=== PATIENT | male | born 1960 | race American Indian/Alaskan Native ===

== ENCOUNTER 2017-01-01 07:57 | Inpatient (IN) | payer OTHER ==
--- NOTE | 2017-01-01 08:25 | CPEKG ---
Heart Rate: 76 RR Interval: 789 P-R Interval: 160 QRSD Interval: 92 QT Interval: 404 QTC Interval: 455 P Viborg: 9 QRS Viborg: -12 T Wave Viborg: 139 EKG Severity - ABNORMAL ECG - EKG Impression: SINUS RHYTHM EKG Impression: LVH WITH SECONDARY REPOLARIZATION ABNORMALITY EKG Impression: ANTERIOR ST ELEVATION, PROBABLY DUE TO LVH Electronically Signed By: Romina Mckoy 01-Jan-2017 08:32:08
--- NOTE | 2017-01-01 08:29 | EDPHY ---
H & P Stated Complaint: htn and gout flare l foot HPI/ROS: CHIEF COMPLAINT: Left foot swelling, high blood pressure HISTORY OF PRESENT ILLNESS: This patient is a 56 year old male complaining of left foot swelling onset a couple weeks ago. Initially he had pain in the area of his Achilles tendon. Now , he has no pain but his foot is still swollen. He has a sensation of pressure, and feels he cannot walk as well as he'd like to, due to pressure and his shoe not fitting. He has history of gout, diagnosed four months ago when he had right knee aspiration. He has been on indocin on and off. Foot pain is his main complain today. Last week he was seen [facility] for foot pain, found to be hypertensive, and advised to go to the emergency department but chose not to do so. He has chronic hypertension, followed by Dr. East, viscera washer. He generally takes Bisoprolol 10mg in the evenings. His last dose was 4am this morning. He does not check his blood pressure at home often, but thinks his baseline is around 180/120. Four years ago went to urgent care for shortness of breath while lying down, and was diagnosed with congestive heart failure. He had a cardiac catheterization and two stents placed. He has not followed up for a stress test as directed. He denies headache, confusion, change in vision, shortness of breath, chest pain, nausea, diarrhea, fever, abdominal pain, or other associated symptoms. REVIEW OF SYSTEMS: A ten point review of systems was performed and is negative with the exception of the items mentioned in the HPI. 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 Cooler Tender Dr. East. PCP Dr. Ribeiro at [facility]. No tobacco, no illicits. General Appearance: Alert. Vital signs reviewed. BP 222/119 Eyes: Pupils equal and round, no conjunctival injection, no discharge. Anicteric. ENT, Mouth: Mucous membranes are moist, no oropharyngeal erythema or edema. Neck: No lymphadenopathy, supple. Respiratory: Lungs are clear to auscultation; no wheezes, rales, or rhonchi. Cardiovascular: Regular rate and rhythm; no murmur, rub, or gallop. Gastrointestinal: Abdomen is soft and nontender, no masses or organomegaly, bowel sounds normal. Skin: Warm and dry, no rashes on exposed skin, normal color. Back: Nontender to palpation over the thoracolumbar spine. No CVAT. Extremities: Left foot mildly diffusely swollen. No warmth or erythema. No calf tenderness or swelling. No Achilles tenderness on left. Pulses: 2+ dorsalis pedis bilaterally. Neurological: Alert and oriented. Moving all four extremities easily and equally. CN 2-12 examined and intact. Strength 5/5 major motor groups. Sensation intact to light touch. Psychiatric: Normal affect. - Personal History Current Tetanus/Diphtheria Vaccine: Yes Tetanus Vaccine Date: 2004 - Medical/Surgical History PMH: 1. HTN 2. CAD s/p stenting 3. CHF 4. Gout Hx Asthma: No Hx Chronic Respiratory Disease: No Hx Diabetes: No Hx Cardiac Disease: Yes Hx Renal Disease: No Hx Cirrhosis: No Hx Alcoholism: No Hx HIV/AIDS: No Hx Splenectomy or Spleen Trauma: No - Social History Smoking Status: Former smoker Constitutional: Initial Vital Signs Temperature (C) 36.8 C 01/01/17 08:03 Heart Rate 83 01/01/17 08:03 Respiratory Rate 20 01/01/17 08:03 Blood Pressure 222/119 H 01/01/17 08:03 O2 Sat (%) 96 01/01/17 08:03 O2 Delivery Mode Room Air Allergies/Adverse Reactions: No Known Allergies Allergy (Verified 01/01/17 08:01) Home Medications: Medication Instructions Recorded Aspirin [Aspirin 81mg (*)] 81 mg PO DAILY 11/22/13 Bisoprolol Fumarate [Zebeta (*)] 2.5 mg PO DAILY 11/22/13 Potassium Cl [Klor-Con 20 meq (*)] 20 meq PO DAILY 11/22/13 Multivitamin with Minerals 1 each PO DAILY 01/01/17 [Multiple Vitamin] Medical Decision Making - Diagnostics EKG Interpretation: EKG interpreted by me in [facility]. Sinus rhythm with LVH, anterior ST elevation thought due to LVH, seen previously. Imaging Results: Xray left foot with joint changes involving the great toe and second toe suggestive of gouty arthritis. I have reviewed radiologist's report and xray. CXR with cardiomegaly, no infiltrate, no CHF. I have reviewed films and radiologist's report. ED Course/Re-evaluation: Creatinine elevated at 2.1. Patient's blood pressure remains high. He received lopressor 120 mg IV. Foot x-ray shows chronic changes of gouty arthritis, no acute processes. 11:[address] East. He recommends admission and NTG paste for control of BP at this time. BP now 189/105, down from triage BP of 223/120. 11:20 Spoke with hospitalist service. Dr. Chowdhury accepts admission for hypertensive urgency with acute kidney injury. 11:24 Reassessed patient. He is comfortable with admission. 12:14 Spoke with heel cutter senior manager asset protection. Nephrology will consult in hospital. Differential Diagnosis: I suspect that his foot pain is related to gout. He does not appear to be in pain at time of my evaluation, although this is his presenting complaint. He is not a good candidate for NSAIDs, given his hypertension and kidney function. Steroid could be considered. I considered a ddx of hypertension including but not limited to medication noncompliance, high sodium diet, renal vascular disease, endocrine abnormality, sympathomimetic agents, and pheochromocytoma. - Data Points Laboratory Results: Laboratory Results 01/01/17 08:55 01/01/17 08:55 Medications Given: Aspirin (Aspirin) 81 mg PO DAILY [facility] Stop: 07/01/17 08:59 Last Admin: 01/03/17 07:59 Dose: 81 mg Bisoprolol Fumarate (Zebeta) 5 mg PO DAILY [facility] Stop: 07/02/17 08:59 Last Admin: 01/03/17 07:59 Dose: 5 mg Heparin Sodium (Porcine) (Heparin Sc Injection) 5,000 unit SC Q8 [facility] Stop: 06/30/17 21:59 Last Admin: 01/02/17 01:45 Dose: Not Given Hydralazine HCl (Apresoline) 10 mg IVP Q6HRS PRN PRN Reason: hypertension Stop: 06/30/17 13:45 Last Admin: 01/03/17 04:04 Dose: 10 mg Hydralazine HCl (Apresoline) 25 mg PO TID [facility] Stop: 07/01/17 15:59 Last Admin: 01/03/17 07:59 Dose: 25 mg Multivitamins/Minerals (Thera M Plus Tablet) 1 each PO DAILY [facility] Stop: 07/01/17 08:59 Last Admin: 01/02/17 09:21 Dose: 1 each Oxycodone/Acetaminophen (Percocet 5/325) 1 - 2 tab PO Q4HRS PRN PRN Reason: Pain, Severe Able to Take PO Stop: 01/11/17 14:35 Last Admin: 01/02/17 08:15 Dose: 2 tab Prednisone (Prednisone) 40 mg PO DAILY [facility] Stop: 07/01/17 14:14 Last Admin: 01/03/17 07:58 Dose: 40 mg Discontinued Medications Bisoprolol Fumarate (Zebeta) 2.5 mg PO DAILY [facility] Stop: 07/01/17 08:59 Last Admin: 01/02/17 09:21 Dose: 2.5 mg Bisoprolol Fumarate (Zebeta) 2.5 mg PO ONCE ONE Stop: 01/02/17 10:50 Last Admin: 01/02/17 11:06 Dose: 2.5 mg Hydralazine HCl (Apresoline) 10 mg IVP ONCE ONE Stop: 01/01/17 14:16 Last Admin: 01/01/17 14:09 Dose: Not Given Labetalol HCl (Trandate Injection) 20 mg IVP Q4 PRN PRN Reason: HTN Stop: 06/30/17 13:55 Last Admin: 01/01/17 18:38 Dose: 20 mg Metoprolol Tartrate (Lopressor Injection) 10 mg IVP EDNOW ONE Stop: 01/01/17 08:54 Last Admin: 01/01/17 08:59 Dose: 10 mg Nitroglycerin (Nitro-Bid 2%) 1 inch TP EDNOW ONE Stop: 01/01/17 11:15 Last Admin: 01/01/17 12:18 Dose: 1 inch Departure - Departure Disposition: [facility] Inpatient Acute Clinical Impression: Hypertensive urgency Kidney failure Qualifiers: Renal failure chronicity: acute Acute renal failure type: unspecified Qualified Code(s): N17.9 - Acute kidney failure, unspecified Condition: Fair Report Scribed for: Romina Mckoy Report Scribed by: Merlyn Yun Date of Report: 01/01/17 Time of Report: 08:33 Physician Review and Approval Statement: 01/02/17 12:12 Portions of this note were transcribed by the medical device assembler. I, Dr. Romina Mckoy, personally performed the history, physical exam, and medical decision- making; and confirmed the accuracy of the information in the transcribed note.
[2017-01-01] MEDS ORDERED: METOPROLOL TARTRATE 5 MG/5 ML INJ IVP ONE (08:53)
[2017-01-01 09:07] LABS: % IMMATURE GRANULYOCYTES 0.3 % (0.0-1.1); ABSOLUTE IMMATURE GRANULOCYTES 0.04 10^3/uL (0.00-0.10); ADD DIFF? NO; ADD MORPH? NO; ADD SCAN? NO; ATYPICAL LYMPHOCYTE FLAG 0 (0-99); FRAGMENT RBC FLAG 0 (0-99); HEMOGLOBIN 15.4 g/dL (13.7-17.5); LEFT SHIFT FLG 0 (0-99); LIPEMIA HEMOLYSIS FLAG 80 (0-99); MEAN CELL HEMOGLOBIN 28.8 pg (27.9-34.1); MEAN CELL HEMOGLOBIN CONCENTR. 33.5 g/dL (32.4-36.7); MEAN CELL VOLUME 86.1 fL (81.5-99.8); MEAN PLATELET VOLUME 9.1 fL (8.7-11.7); PLATELET CLUMPS FLAG 10 (0-99); PLATELET COUNT 368 10^3/uL (150-400); RED BLOOD CELL COUNT 5.34 10^6/uL (4.40-6.38); RED CELL DISTRIBUTION WIDTH 12.4 % (11.5-15.2)
[2017-01-01 09:55] LABS: ANION GAP 20 mEq/L (8-16); CALCIUM 10.1 mg/dL (8.5-10.4); CARBON DIOXIDE 21 mEq/l (22-31); CHLORIDE 102 mEq/L (97-110); GLUCOSE 98 mg/dL (70-100); POTASSIUM 4.4 mEq/L (3.5-5.2); SODIUM 143 mEq/L (134-144)
[2017-01-01 10:04] LABS: COLOR YELLOW; LEUKOCYTE ESTERASE,URINE NEGATIVE (NEGATIVE); NITRITE,URINE NEGATIVE (NEGATIVE)
[2017-01-01 10:17] LABS: TROPONIN I 0.015 ng/mL (0-0.034)
[2017-01-01 10:20] LABS: CREATININE 2.1 mg/dL (0.7-1.3); GLOMERULAR FILTRATION RATE 33
[2017-01-01] MEDS ORDERED: NITROGLYCERIN 2% 1 GM PACKET TP ONE (11:14)
--- NOTE | 2017-01-01 13:44 | SOAPPROG ---
SOAP Progress Note Assessment/Plan: Assessment: hypertensive urgency AMY stopped hydralazine in past taking indocin for gout flare Plan: resume hydralazine, start with IV and convert to PO try to keep SBP 180-190 range for now beta manish avoid ramone/arb for now work up secondary causes of HTN no more indocin 01/01/17 13:40 Subjective: no complaints except left foot pain from gout Objective: Vital Signs Temp Pulse Resp BP Pulse Ox 37.1 C 81 17 243/133 H 97 01/01/17 12:42 01/01/17 13:19 01/01/17 12:42 01/01/17 13:19 01/01/17 12:42 Physical Exam - Physical Exam General Appearance: alert, no apparent distress, thin Respiratory: No rales, No rhonchi, No wheezing Cardiac/Chest: regular rate, rhythm, edema (left foot), No friction rub Abdomen: normal bowel sounds, non-tender, soft Neuro/Psych: alert, normal mood/affect, oriented x 3 ICD10 Worksheet Patient Problems: Problems Problem Status Onset Hypertension Acute Poor kidney function Acute Chronic Disease Management/Transitional Care Program Active
[2017-01-01] MEDS ORDERED: LABETALOL HCL 5 MG/ML 20 ML MDV IVP PRN (13:56)
[2017-01-01 13:57] LABS: URIC ACID 11.5 mg/dL (3.5-8.5)
[2017-01-01] MEDS: hydrALAZINE 20 MG/ML VIAL IVP PRN (14:05)
[2017-01-01 14:09] LABS: PTH INTACT NO MINERALS 116.5 pg/ml (10.8-79.4)
[2017-01-01] MEDS ORDERED: hydrALAZINE 20 MG/ML VIAL IVP ONE (14:15)
[2017-01-01] MEDS ORDERED: ONDANSETRON 4 MG/2 ML VIAL IVP PRN (14:36)
[2017-01-01] MEDS ORDERED: ALBUTEROL 3 ML DEYVIAL IH PRN (14:36)
[2017-01-01] MEDS ORDERED: ACETAMINOPHEN 325 MG TAB PO PRN (14:36)
[2017-01-01] MEDS ORDERED: ONDANSETRON DISINTEGRATING 4 MG TAB PO PRN (14:36)
--- NOTE | 2017-01-01 14:44 | PDGENHP ---
History and Physical - Chief Complaint HTN - History of Present Illness This is a 56 yo male with hx of CAD and HTN who recently was taken off Hydralazine who is being admitted for HTN Urgency with BP in the 200's systolic. He is not symptomatic. Denies CP, SOB, JESSICA, vision changes. Reports BP has been running high for a while. Nitropaste and BB given in the E.D. I was called by his nurse once the patient arrived to the floor with a BP of 243/133 and I ordered stat Hydralazine 10mg. He reports a long hx of HTN. 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 He is a non smoker, no cocaine or other illicits. Afebrile. No hx of renal or Thyroid illness. NO hx of DM. Cr is found to be elevated. He has been on indocin intermittently for Gout for over a year. Previously had unremarkable Cr. He denies any active gout and denies foot pain. PMHx: Gout HTN CAD s/p stent CHF PSHx: cardiac cath SHX: non smoker no illicits no ETOH FMHX: DMII ALL: NKDA MED: SEE MED REC EKG: LVH CXR: CADIOMEGALY History Information - Allergies/Home Medication List Allergies/Adverse Reactions: No Known Allergies Allergy (Verified 01/01/17 08:01) Home Medications: Aspirin [Aspirin 81mg (*)] 81 mg PO DAILY 11/22/13 [Last Taken 01/01/17] Bisoprolol Fumarate [Zebeta (*)] 2.5 mg PO DAILY 11/22/13 [Last Taken 01/01/17 04:00] Potassium Cl [Klor-Con 20 meq (*)] 20 meq PO DAILY 11/22/13 [Last Taken 12/31/16 ] Multivitamin with Minerals [Multiple Vitamin] 1 each PO DAILY 01/01/17 [Last Taken Unknown] I have personally reviewed and updated: family history, medical history, social history, surgical history - Social History Smoking Status: Former smoker Review of Systems ROS: 10pt was reviewed & negative except for what was stated in HPI & below Physical Exam Temp Pulse Resp BP Pulse Ox 37.1 C 81 17 243/133 H 97 01/01/17 12:42 01/01/17 13:19 01/01/17 12:42 01/01/17 14:05 01/01/17 12:42 Constitutional: no apparent distress, appears nourished, not in pain Eyes: PERRL, anicteric sclera, EOMI Ears, Nose, Mouth, Throat: moist mucous membranes, hearing normal Cardiovascular: regular rate and rhythym, no murmur, rub, or gallop, No JVD, No edema Peripheral Pulses: 2+: dorsalis-pedis (R), dorsalis-pedis (L) Respiratory: no respiratory distress, no rales or rhonchi, clear to auscultation Gastrointestinal: normoactive bowel sounds, soft, non-tender abdomen, no palpable masses Genitourinary: no bladder fullness, no bladder tenderness Skin: warm, normal color, no rashes or abrasions, no fluctuance, no induration, No mottled Musculoskeletal: full muscle strength, no muscle tenderness, normal joint ROM, no joint effusions Neurologic: AAOx3, sensation intact bilaterally Psychiatric: interacting appropriately, not anxious, not encephalopathic Lab Data & Imaging Review 01/01/17 08:55 01/01/17 08:55 WBC 13.17 10^3/uL (3.80-9.50) H 01/01/17 08:55 RBC 5.34 10^6/uL (4.40-6.38) 01/01/17 08:55 Hgb 15.4 g/dL (13.7-17.5) 01/01/17 08:55 Hct 46.0 % (40.0-51.0) 01/01/17 08:55 MCV 86.1 fL (81.5-99.8) 01/01/17 08:55 MCH 28.8 pg (27.9-34.1) 01/01/17 08:55 MCHC 33.5 g/dL (32.4-36.7) 01/01/17 08:55 RDW 12.4 % (11.5-15.2) 01/01/17 08:55 Plt Count 368 10^3/uL (150-400) 01/01/17 08:55 MPV 9.1 fL (8.7-11.7) 01/01/17 08:55 Neut % (Auto) 83.1 % (39.3-74.2) H 01/01/17 08:55 Lymph % (Auto) 8.5 % (15.0-45.0) L 01/01/17 08:55 [place] % (Auto) 7.0 % (4.5-13.0) 01/01/17 08:55 Eos % (Auto) 0.8 % (0.6-7.6) 01/01/17 08:55 Baso % (Auto) 0.3 % (0.3-1.7) 01/01/17 08:55 Nucleat RBC Rel Count 0.0 % (0.0-0.2) 01/01/17 08:55 Absolute Neuts (auto) 10.94 10^3/uL (1.70-6.50) H 01/01/17 08:55 Absolute Lymphs (auto) 1.12 10^3/uL (1.00-3.00) 01/01/17 08:55 Absolute Monos (auto) 0.92 10^3/uL (0.30-0.80) H 01/01/17 08:55 Absolute Eos (auto) 0.11 10^3/uL (0.03-0.40) 01/01/17 08:55 Absolute Basos (auto) 0.04 10^3/uL (0.02-0.10) 01/01/17 08:55 Absolute Nucleated RBC 0.00 10^3/uL (0-0.01) 01/01/17 08:55 Immature Gran % 0.3 % (0.0-1.1) 01/01/17 08:55 Immature Gran # 0.04 10^3/uL (0.00-0.10) 01/01/17 08:55 Turbidity TNP 01/01/17 08:55 Sodium 143 mEq/L (134-144) 01/01/17 08:55 Potassium 4.4 mEq/L (3.5-5.2) 01/01/17 08:55 Chloride 102 mEq/L (97-110) 01/01/17 08:55 Carbon Dioxide 21 mEq/l (22-31) L 01/01/17 08:55 Anion Gap 20 mEq/L (8-16) H 01/01/17 08:55 BUN 32 mg/dL (7-23) H 01/01/17 08:55 Creatinine 2.1 mg/dL (0.7-1.3) H 01/01/17 08:55 Estimated GFR 33 01/01/17 08:55 Glucose 98 mg/dL (70-100) 01/01/17 08:55 Uric Acid 11.5 mg/dL (3.5-8.5) H 01/01/17 13:31 Calcium 10.1 mg/dL (8.5-10.4) 01/01/17 08:55 Troponin I 0.015 ng/mL (0-0.034) 01/01/17 08:55 25-OH Vitamin D Total 15.0 ng/mL (30-100) L 01/01/17 13:31 TSH 0.845 uIU/mL (0.465-4.680) 01/01/17 13:31 PTH Intact 116.5 pg/ml (10.8-79.4) H 01/01/17 13:31 Specimen Hemolysis TNP 01/01/17 08:55 Urine Color YELLOW 01/01/17 09:55 Urine Appearance CLEAR 01/01/17 09:55 Urine pH 5.0 (5.0-7.5) 01/01/17 09:55 Ur Specific [place] 1.019 (1.002-1.030) 01/01/17 09:55 Urine Protein NEGATIVE (NEGATIVE) 01/01/17 09:55 Urine Ketones NEGATIVE (NEGATIVE) 01/01/17 09:55 Urine Blood NEGATIVE (NEGATIVE) 01/01/17 09:55 Urine Nitrate NEGATIVE (NEGATIVE) 01/01/17 09:55 Urine Bilirubin NEGATIVE (NEGATIVE) 01/01/17 09:55 Urine Urobilinogen NEGATIVE EU (0.2-1.0) 01/01/17 09:55 Ur Leukocyte Esterase NEGATIVE (NEGATIVE) 01/01/17 09:55 Urine Glucose NEGATIVE (NEGATIVE) 01/01/17 09:55 Rheum Factor Semi-Quant < 8.6 IU/mL (<12.0) 01/01/17 13:31 Assessment & Plan Assessment: #HTN Urgency #Acute vs subacute kidney injury #Leukocytosis, unclear etiology, no signs of infection #Gout, chronic, no acute exacerbation, primarily affects feet #CAD Plan: Admit Renal is following. Urine studies pending. TTE pending. Renal US is pending CV to follow IV Meds: Hydralazine and Propranolol PRN. Goal BP today is systolic 180-190mmHg Cont home BB Stop Indocin Does not appear to have volume deficit Urine studies ordered, TSH restart appropriate home meds DVT proph: Heparin Full Code
[2017-01-01 14:53] LABS: HEPATITIS B SURFACE ANTIBODY NEGATIVE (NEGATIVE)
--- NOTE | 2017-01-01 15:16 | GCON ---
[f rep st] CONSULTATION NEPHROLOGY CONSULTATION DATE OF CONSULTATION: 01/01/2017 REASON FOR CONSULTATION: Opinion regarding hypertensive urgency. HISTORY OF PRESENT ILLNESS: The patient is a very pleasant, 56-year-old gentleman with a history of hypertension and coronary artery disease, currently status post coronary artery stenting x2 in October of 2012. He has a history of hypertension, as well as gout. He was in his usual state of health u ntil about 3 days ago, when he began having a gout flare. He took indomethacin up until last night for his gout, but was not getting better. He presented to the emergency department today with left foot pain. He was noted to have a blood pressure of 245/136 in the emergency department. He was gi jose angel nitroglycerin paste and his blood pressures have decreased, initially down to the 205/116 range, but now remained in the 240/130 range. He denies having had fevers, chills, nausea, vomiting, chest pain, shortness of breath, cough, sputu m, hemoptysis, hematemesis, epistaxis, abdominal pain, diarrhea or constipation, melena, hematochezi a, blurry vision, double vision, headache, orthopnea, paroxysmal nocturnal dyspnea, palpitations, sy ncope, diminished urine output, gross hematuria or dysuria. He has been taking indomethacin. PAST MEDICAL HISTORY: Significant for: 1. Coronary artery disease. 2. Status post coronary artery stenting x2 in October of 2012. 3. Hypertension. 4. Gout. MEDICATIONS: Current home medications include: 1. Aspirin 81 mg a day. 2. Bisoprolol 5 mg daily. 3. Multiple vitamin daily. 4. Furosemide 20 mg daily. 5. Potassium chloride 20 mEq daily. 6. Plavix and hydralazine (stopped taking about 18 months ago). 7. Indomethacin as needed for gout, last dose was last night. ALLERGIES: None. FAMILY HISTORY: Positive for hypertension in his mother. Negative for renal disease. SOCIAL HISTORY: He is . He has no children. 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 He does not use tobacco, alcohol, IV or recreational drugs. He enjoys snowboarding, mountain biking, swimming, and generally all outdoor activities. REVIEW OF SYSTEMS: A complete 12-point review of systems was performed with pertinent positives and negatives as per the previous sections. PHYSICAL EXAMINATION: VITAL SIGNS: Blood pressures are in the 230s to 140s over 120s to 130s, puls e 73, respirations 14, temperature 36.8 degrees, he weighs 80 kg. GENERAL: He is awake, alert, coordinator of placement perative, and is in no acute distress. HEENT: Pupils are reactive to light. Extraocular movements are intact. Mucous membranes are moist. NECK: No lymphadenopathy or thyromegaly. HEART: Regula r. No rub. No S3. A grade 1/6 murmur. LUNGS: No rales, rhonchi, or wheezes. ABDOMEN: Bowel so unds are positive. Soft, nontender, nondistended. I can appreciate no bruits. EXTREMITIES: Trace edema on the left. He has gouty tophi on the 2nd left toe. No edema on the right. NEUROLOGIC: N o asterixis. SKIN: He has changes of arterial and venous insufficiency in his lower extremities bi laterally. MUSCULOSKELETAL: Changes of gouty tophi on his 2nd left toe. LABS: Laboratory from the Emergency Department: Serum sodium 143, potassium 4.4, chloride 102, CO2 21, BUN 32, creatinine 2.1, glucose 98. Calcium of 10. Troponin of 0.015. WBC 13.17, hemoglobin 15.4, hematocrit 46, platelet count 368,000. Urinalysis: Specific gravity 1.019, pH 5, negative pr otein, negative blood. IMAGING: Chest x-ray showed cardiomegaly without infiltrates. Foot x-ray showed probable gouty arthritis. IMPRESSION: 1. Hypertensive urgency, currently asymptomatic. He moved upstairs to the telemetry floor. 2. Acute versus chronic kidney injury. May well be due to nonsteroidal antiinflammatory drug use r ecently. 3. The patient has known coronary artery disease, but stopped his Plavix and hydralazine about 18 m onths ago. PLAN: 1. Will resume hydralazine. Will give it IV to help bring his systolic blood pressures down more i nto the 180-190 range over the next day or so. 2. Labetalol IV also to keep the systolic blood pressure in the 180-190 range for right now. 3. With his renal failure, we will avoid SAKINA or ARB for right now. 4. We will evaluate for secondary causes of his hypertension. 5. We will check an echocardiogram, renal ultrasound with Doppler, cortisol, aldosterone, renin, AN A, rheumatoid factor, TSH, urine chemistries, hepatitis serologies, etc. 6. Would avoid nonsteroidals both now and in the future. 7. All questions were answered to the patient's satisfaction. Thank for allowing me to participate in the care of your patient. If there are any questions, pleas e do not hesitate to contact us. We will be following along with you. /[id number]/MODL
--- NOTE | 2017-01-01 15:30 | ECHO ---
[id number] + + [address] : : [place] [id number] : : [phone] + Adult Echocardiographic Report + ---+ :Name: CHET SURY DStudy Date: 01/01/2017 02:18 PM BP: 243/133 mmHg : : Hospital Admission Number: [id number] Location: 209: :: 1960 Gender: Male Height: 67 in : :Age: 56 yrs Race: AIA Weight: 177 lb : :Reason For Study: lvh hypertensive emergency : : BSA: 1.9 meters2 : :History: hypertensive urgency : + ---+ MMode/2D Measurements \T\ Calculations IVSd: 1.3 cm RVDd: 2.6 cm FS: 20.2 % Ao root diam: LVPWd: 1.2 cm LVIDd: 5.4 cm EDV(Teich): 2.9 cm LVIDs: 4.3 cm 143.7 ml ESV(Teich): 84.9 ml EF(Teich): 40.9 % LVLd ap4: 10.1 cm SV(MOD-sp4): EDV(MOD-sp4): 132.0 ml 264.0 ml LVLs ap4: 9.1 cm ESV(MOD-sp4): 132.0 ml EF(MOD-sp4): 50.0 % Normal Measurement Values: + + :LVIDd (3.5-5.7cm) IVSd (0.6-1.1cm) LVPWd (0.6-1.1cm) Aortic Root (2.0-3.7cm)Left Atrium (1.5-4.0cm): :LV Vol(d) (76-115ml) LV Vol(s) (29-48ml) Ejec Fraction (50-65%)PV Ciro (0.6- 1.2m/s) TV Crio (0.4-1.0m/s) : :MV E Ciro (0.8-1.0m/s)MV A Ciro (0.3-1.0m/s)LVOT Ciro (0.7-1.2m/s) Asc Ao Ciro ( 0.9-1.8m/s) : + + Doppler Measurements \T\ Calculations MV E max ciro: Ao V2 max: LV V1 max: PA V2 max: 40.6 cm/sec 118.2 cm/sec 98.7 cm/sec 147.0 cm/sec MV A max ciro: Ao max PG: LV V1 max PG: PA max P.0 cm/sec 6.1 mmHg 3.9 mmHg 8.6 mmHg MV E/A: 0.36 TR max ciro: 203.0 cm/sec TR max P.5 mmHg RAP systole: 5.0 mmHg RVSP(TR): 21.5 mmHg Left Ventricle The left ventricle is borderline dilated. There is moderate concentric left ventricular hypertrophy. Left ventricular systolic function is low normal. Ejection Fraction = 50-55%. There is Doppler evidence for diastolic dysfunction. Right Ventricle The right ventricle is normal in size and function. Atria The left atrial size is normal. Right atrial size is normal. Mitral Valve The mitral valve leaflets appear thickened, but open well. There is no mitral valve stenosis. There is mild mitral regurgitation. Tricuspid Valve The tricuspid valve is normal in structure and function. There is no tricuspid stenosis. There is mild tricuspid regurgitation. Right ventricular systolic pressure is 22mmHg. Aortic Valve Cannot rule out bicuspid aortic valve due to image quality. There is no aortic stenosis. Mild aortic regurgitation. Pulmonic Valve The pulmonic valve is not well visualized. Great Vessels The aortic root is normal size. Pericardium/Pleural There is no pericardial effusion. Conclusion A two-dimensional transthoracic echocardiogram with M-mode and Doppler was performed. There is moderate concentric left ventricular hypertrophy. Left ventricular systolic function is low normal. There is Doppler evidence for diastolic dysfunction. There is mild mitral regurgitation. There is mild tricuspid regurgitation. Right ventricular systolic pressure is 22mmHg. Cannot rule out bicuspid aortic valve due to image quality. Mild aortic regurgitation. Ejection Fraction = 50-55%. The left ventricle is borderline dilated. Final Reading Physician: Anirudh Mc signed on 01/01/2017 03:29 PM Ordering Physician: Chapito Martinez Performed By: Florence Contreras
[2017-01-01] MEDS: HEPARIN 5,000 UNIT/0.5 ML SYR SC SCH (21:57)
[2017-01-01] MEDS: OXYCODONE/APAP 5/325 TAB PO PRN (22:47)
[2017-01-02] MEDS: HEPARIN 5,000 UNIT/0.5 ML SYR SC SCH (01:45)
[2017-01-02 05:08] LABS: % IMMATURE GRANULYOCYTES 0.5 % (0.0-1.1); ABSOLUTE IMMATURE GRANULOCYTES 0.05 10^3/uL (0.00-0.10); ADD DIFF? NO; ADD MORPH? NO; ADD SCAN? NO; ATYPICAL LYMPHOCYTE FLAG 0 (0-99); FRAGMENT RBC FLAG 0 (0-99); HEMATOCRIT 39.1 % (40.0-51.0); HEMOGLOBIN 12.8 g/dL (13.7-17.5); LEFT SHIFT FLG 0 (0-99); LIPEMIA HEMOLYSIS FLAG 80 (0-99); MEAN CELL HEMOGLOBIN 28.5 pg (27.9-34.1); MEAN CELL HEMOGLOBIN CONCENTR. 32.7 g/dL (32.4-36.7); MEAN CELL VOLUME 87.1 fL (81.5-99.8); MEAN PLATELET VOLUME 9.1 fL (8.7-11.7); PLATELET CLUMPS FLAG 0 (0-99); PLATELET COUNT 330 10^3/uL (150-400); RED BLOOD CELL COUNT 4.49 10^6/uL (4.40-6.38); RED CELL DISTRIBUTION WIDTH 12.4 % (11.5-15.2)
[2017-01-02 05:25] LABS: ALBUMIN 3.6 g/dL (3.5-5.0); ANION GAP 13 mEq/L (8-16); CARBON DIOXIDE 22 mEq/l (22-31); CHLORIDE 104 mEq/L (97-110); CREATININE 1.9 mg/dL (0.7-1.3); GLOMERULAR FILTRATION RATE 37; GLUCOSE 97 mg/dL (70-100); MAGNESIUM 2.2 mg/dL (1.6-2.3); POTASSIUM 4.1 mEq/L (3.5-5.2); SODIUM 139 mEq/L (134-144)
[2017-01-02] MEDS: OXYCODONE/APAP 5/325 TAB PO PRN (08:15)
[2017-01-02] MEDS ORDERED: BISOPROLOL FUMARATE 5 MG TAB PO SCH (09:00)
[2017-01-02] MEDS ORDERED: NON-FORMULARY NEW DRUG (Multivitamin With Minerals [Multiple Vitamin] 1 EACH) PO SCH (09:00)
[2017-01-02] MEDS: MULTIVITAMINS W-MINERALS 1 EACH TAB PO SCH (09:21)
[2017-01-02] MEDS: ASPIRIN 81 MG CHEWABLE TAB PO SCH (09:21)
[2017-01-02] MEDS: hydrALAZINE 20 MG/ML VIAL IVP PRN (09:24)
[2017-01-02 09:44] LABS: EOSMR EOSINOPHILS NO EOS SEEN (NO EOS SEEN)
[2017-01-02 09:45] LABS: EOSMR EPITHELIAL CELLS FEW EPITH CELLS; EOSMR PMNS NO PMN CELLS SEEN; EOSMR RBCS NO RBCS SEEN
[2017-01-02] MEDS ORDERED: BISOPROLOL FUMARATE 5 MG TAB PO ONE (10:49)
--- NOTE | 2017-01-02 11:23 | SOAPPROG ---
SOAP Progress Note Assessment/Plan: Assessment: hypertensive urgency, bp better today AMY, creat down a bit gout flare LVH on echo Probable L main TYLER on doppler Plan: resume hydralazine, convert to PO, 25 mg TID try to keep SBP 180-190 range for now increase beta manish (bisoprolol) avoid ramone/arb for now no more indocin would consider CO2 angiography or renal arteries +/- intervention depending on findings await other secondary eval labs 01/01/17 13:40 01/02/17 11:19 Subjective: at bedside counseled regarding prob TYLER and need for potential angio and intervention counseled regarding risks and benefits, all questions answered feeling better today except for gout, would start pred 20 mg daily for a week and then start allopurinol for prevention no cp sob nausea vomiting or anorexia Objective: Vital Signs Temp Pulse Resp BP Pulse Ox 37.2 C 91 18 184/118 H 96 01/02/17 08:00 01/02/17 08:00 01/02/17 08:00 01/02/17 09:24 01/02/17 08:00 Laboratory Results 01/02/17 04:01 01/02/17 04:01 01/01/17 01/02/17 01/03/17 05:59 05:59 05:59 Intake Total 350 Output Total 400 Balance -50 Physical Exam - Physical Exam General Appearance: alert Respiratory: No rales, No rhonchi, No wheezing Cardiac/Chest: regular rate, rhythm, No edema, No friction rub Abdomen: normal bowel sounds, non-tender, soft Extremities: No pedal edema Neuro/Psych: alert, normal mood/affect, oriented x 3 ICD10 Worksheet Patient Problems: Problems Problem Status Onset Hypertension Acute Poor kidney function Acute Chronic Disease Management/Transitional Care Program Active
[2017-01-02 11:51] LABS: ANTINUCLEAR ANTIBODIES SCREEN 0.37 UNITS (<=1.00)
--- NOTE | 2017-01-02 14:06 | HOSPPROG ---
Hospitalist Progress Note Assessment/Plan: # Acute hypertensive urgency- patient presented with blood pressures in the 230s to 240 was treated with IV pushes of metoprolol in the emergency department as well as hydralazine and labetalol on the medical floor- BP ranging in the 180 systolic this morning Telemetry (personally reviewed and interpreted) sinus rhythm without acute changes- oxygen saturations 95% on room air Renal ultrasound ( reviewed) findings consistent with possible renal artery stenosis on the right - increasing outpatient this overall to 5 mg daily - adding hydralazine 25 mg p.o. three times daily - holding Fredo inhibitors and ARB at this time secondary to acute kidney injury - reviewed case with IR and Nephrology planning for a CO 2 renal arteriogram tomorrow and possible intervention - NPO after midnight # acute kidney injury- creatinine 2.1-> 1.9 this a.m. - renal ultrasound reviewed above - continue holding NSAIDs - planning for renal evaluation tomorrow by IR # suspected acute gout flare- patient with marked pain overnight of the right great toe and 2nd toe Has crystal confirmed diagnosis of gout in the past- was using NSAIDs at home - continue holding NSAIDs - start p.o. prednisone - continue p.r.n. pain meds # coronary artery disease- history of- no current chest pain complaints - continue home medications - continue aggressive blood pressure control # proph - patient refusing heparin- will hold for INR in a.m. # diet cardiac- NPO after midnight # disposition greater than 2 midnights as requiring cardiac monitoring active titration of blood pressure medications and evaluation for possible diagnosis of renal artery stenosis I have discussed the case with Nephrology we will plan for a CO2 renal arteriogram with potential intervention by IR in a.m. Subjective: Denies chest pain Objective: Vital Signs Temp Pulse Resp BP Pulse Ox 36.9 C 85 17 180/105 H 95 01/02/17 12:00 01/02/17 12:00 01/02/17 12:00 01/02/17 12:00 01/02/17 12:00 Laboratory Results 01/02/17 04:01 01/02/17 04:01 01/01/17 01/02/17 01/03/17 05:59 05:59 05:59 Intake Total 350 Output Total 400 Balance -50 - Physical Exam Constitutional: appears nourished Eyes: anicteric sclera Ears, Nose, Mouth, Throat: moist mucous membranes Cardiovascular: regular rate and rhythym Respiratory: no respiratory distress, no rales or rhonchi Gastrointestinal: normoactive bowel sounds Genitourinary: no bladder fullness Skin: warm, normal color Musculoskeletal: No asymmetric calves Neurologic: AAOx3 Psychiatric: interacting appropriately, not anxious Lymph, Heme, Immunologic: no cervical LAD ICD10 Worksheet Patient Problems: Problems Problem Status Onset Hypertension Acute Poor kidney function Acute Chronic Disease Management/Transitional Care Program Active
[2017-01-02] MEDS: predniSONE 20 MG TAB PO SCH (14:26)
[2017-01-02] MEDS: hydrALAZINE 25 MG TAB PO SCH ×2 (14:27→22:03)
[2017-01-02 15:26] LABS: DSDNA IF INDICATED NOT INDICATED (NOT IND)
[2017-01-03] MEDS: hydrALAZINE 20 MG/ML VIAL IVP PRN (04:04)
[2017-01-03 05:33] LABS: % IMMATURE GRANULYOCYTES 0.5 % (0.0-1.1); ABSOLUTE IMMATURE GRANULOCYTES 0.07 10^3/uL (0.00-0.10); ADD DIFF? NO; ADD MORPH? NO; ADD SCAN? NO; ATYPICAL LYMPHOCYTE FLAG 0 (0-99); FRAGMENT RBC FLAG 0 (0-99); HEMATOCRIT 42.3 % (40.0-51.0); HEMOGLOBIN 14.1 g/dL (13.7-17.5); LEFT SHIFT FLG 0 (0-99); LIPEMIA HEMOLYSIS FLAG 80 (0-99); MEAN CELL HEMOGLOBIN 28.7 pg (27.9-34.1); MEAN CELL HEMOGLOBIN CONCENTR. 33.3 g/dL (32.4-36.7); MEAN PLATELET VOLUME 9.3 fL (8.7-11.7); PLATELET CLUMPS FLAG 0 (0-99); PLATELET COUNT 404 10^3/uL (150-400); RED BLOOD CELL COUNT 4.92 10^6/uL (4.40-6.38); RED CELL DISTRIBUTION WIDTH 12.1 % (11.5-15.2)
[2017-01-03 05:43] LABS: ALBUMIN 4.1 g/dL (3.5-5.0); ANION GAP 16 mEq/L (8-16); CALCIUM 9.9 mg/dL (8.5-10.4); CARBON DIOXIDE 20 mEq/l (22-31); CHLORIDE 102 mEq/L (97-110); CREATININE 1.7 mg/dL (0.7-1.3); GLOMERULAR FILTRATION RATE 42; GLUCOSE 156 mg/dL (70-100); POTASSIUM 4.8 mEq/L (3.5-5.2); SODIUM 138 mEq/L (134-144)
[2017-01-03 05:46] LABS: INR 0.98 (0.83-1.16); PROTIME(PATIENT) 12.9 SEC (12.0-15.0)
[2017-01-03 05:47] LABS: APTT 33.7 SEC (23.0-38.0)
[2017-01-03] MEDS: predniSONE 20 MG TAB PO SCH (07:58)
[2017-01-03] MEDS: hydrALAZINE 25 MG TAB PO SCH ×3 (07:59→21:17)
[2017-01-03] MEDS: BISOPROLOL FUMARATE 5 MG TAB PO SCH (07:59)
[2017-01-03] MEDS: ASPIRIN 81 MG CHEWABLE TAB PO SCH (07:59)
[2017-01-03] MEDS: MULTIVITAMINS W-MINERALS 1 EACH TAB PO SCH (10:03)
--- NOTE | 2017-01-03 10:30 | SOAPPROG ---
SOJEFF Progress Note Assessment/Plan: Assessment:Plan: HTN-Unstable -BP worse -possibly due to TYLER -plan for angiogram and MIRROR INSTALLER today -BP elevated -plan not to over-treat prior to procedure as BP can drop precipitously with intervention -discussed with nursing -short acting medication if needed afterward -BP's can be somewhat labile with reperfusion -risk for complications discussed with patient and spouse -if no TYLER is identified, will need to increase Bisoprolol and hydralazine and add ARB ARF-resolved -element from NSAIDs and/or HTN Gout-had been using indocin at home -given baseline CKD, this would be contraindicated -on prednisone CKD-baseline creatinine 1.6 to 1.9 -now at baseline -lytes and volume status okay Dispo-pending results and/or response to the above 01/03/17 10:34 01/03/17 10:36 Subjective: no new complaints, BP elevated Objective: Vital Signs Temp Pulse Resp BP Pulse Ox 37.1 C 107 H 14 200/127 H 96 01/03/17 08:00 01/03/17 08:00 01/03/17 08:00 01/03/17 08:00 01/03/17 08:00 Laboratory Results 01/03/17 04:02 01/03/17 04:02 01/02/17 01/03/17 01/04/17 05:59 05:59 05:59 Intake Total 350 500 Output Total 400 600 400 Balance -50 -100 -400 PT 12.9 SEC (12.0-15.0) 01/03/17 04:02 INR 0.98 (0.83-1.16) 01/03/17 04:02 Physical Exam - Physical Exam General Appearance: WD/WN, alert, no apparent distress EENT: normal ENT inspection Neck: normal inspection Respiratory: chest non-tender, lungs clear, normal breath sounds, No respiratory distress Cardiac/Chest: regular rate, rhythm, No diastolic murmur, No systolic murmur Abdomen: normal bowel sounds, non-tender, soft, No hepatomegaly, No splenomegaly Skin: normal color, warm/dry Extremities: No swelling Neuro/Psych: no motor/sensory deficits ICD10 Worksheet Patient Problems: Problems Problem Status Onset Hypertensive urgency Acute Kidney failure Acute Chronic Disease Management/Transitional Care Program Active
[2017-01-03] MEDS ORDERED: fentaNYL 100 MCG/2 ML INJ ONE (12:50)
[2017-01-03] MEDS ORDERED: MIDAZOLAM 2 MG/2 ML VIAL ONE (12:51)
[2017-01-03] MEDS ORDERED: GLUCAGON,HUMAN RECOMBINANT 1 MG VIAL ONE (13:23)
[2017-01-03] MEDS ORDERED: IOPAMIDOL (ISOVUE-300) 100 ML BTL ONE ×2 (13:56→14:11)
--- NOTE | 2017-01-03 14:37 | POSTOPPROG ---
Post Op Note Date of Operation: 01/03/17 Surgeon: Lamont Hutchinson Anesthesia: IV Sedation Pre-op Diagnosis: Hypertensive crisis Post-op Diagnosis: Renal arterial stenosis Indication: Uncontrolled labile hypertension Procedure: Bilateral renal CO2 arteriography. Left renal arterial stent Findings: Left renal arterial stenosis, 6mm stent. Chronic bilateral renal disease. Inf/Abcess present in the surg proc area at time of surgery?: No Depth: Superfical (Skin SQ) EBL: Minimal Complications: 0
--- NOTE | 2017-01-03 15:58 | HOSPPROG ---
Hospitalist Progress Note Assessment/Plan: # Acute hypertensive urgency- patient presented with blood pressures in the 230s to 240 was treated with IV pushes of metoprolol in the emergency department as well as hydralazine and labetalol on the medical floor- BP ranging in the 180-200 systolic this morning Telemetry (personally reviewed and interpreted) sinus rhythm without acute changes- oxygen saturations 95% on room air Renal ultrasound - findings consistent with possible renal artery stenosis on the right - continue bisoprolol 5 mg daily - will discuss up titrating hydralazine 25 mg p.o. three times daily - holding Fredo inhibitors and ARB at this time secondary to acute kidney injury - patient to IR today for CO 2 renal arteriogram and possible intervention - NPO after midnight # Acute kidney injury- creatinine 2.1-> 1.7 this a.m. - renal ultrasound reviewed above - continue holding NSAIDs - planning for renal evaluation tomorrow by IR # acute gout flare- patient with marked pain of the right great toe and 2nd toe - improved overnight with prednisone Has crystal confirmed diagnosis of gout in the past- was using NSAIDs at home - continue holding NSAIDs - continue p.o. prednisone - continue p.r.n. pain meds # coronary artery disease- history of- no current chest pain complaints - continue home medications - continue aggressive blood pressure control # proph - heparin- will hold for INR in a.m. # diet cardiac- NPO after midnight # disposition greater than 2 midnights as requiring cardiac monitoring active titration of blood pressure medications and evaluation for possible diagnosis of renal artery stenosis I have discussed the case with IR- Renal CO2 arteriogram today Subjective: Denies chest pain - gout much improved Objective: Vital Signs Temp Pulse Resp BP Pulse Ox 36.7 C 84 16 204/119 H 91 L 01/03/17 10:59 01/03/17 10:59 01/03/17 10:59 01/03/17 10:59 01/03/17 10:59 Laboratory Results 01/03/17 04:02 01/03/17 04:02 01/02/17 01/03/17 01/04/17 05:59 05:59 05:59 Intake Total 350 500 Output Total 400 600 400 Balance -50 -100 -400 PT 12.9 SEC (12.0-15.0) 01/03/17 04:02 INR 0.98 (0.83-1.16) 01/03/17 04:02 - Physical Exam Constitutional: appears nourished Eyes: anicteric sclera Ears, Nose, Mouth, Throat: moist mucous membranes Cardiovascular: regular rate and rhythym Respiratory: no respiratory distress, no rales or rhonchi Gastrointestinal: normoactive bowel sounds, soft, non-tender abdomen Genitourinary: no bladder fullness Skin: warm, normal color Musculoskeletal: No asymmetric calves Neurologic: AAOx3 Psychiatric: interacting appropriately, not anxious Lymph, Heme, Immunologic: no cervical LAD ICD10 Worksheet Patient Problems: Problems Problem Status Onset Hypertensive urgency Acute Kidney failure Acute Chronic Disease Management/Transitional Care Program Active
[2017-01-04 04:49] LABS: % IMMATURE GRANULYOCYTES 0.5 % (0.0-1.1); ADD DIFF? NO; ADD MORPH? NO; ADD SCAN? NO; ATYPICAL LYMPHOCYTE FLAG 0 (0-99); FRAGMENT RBC FLAG 0 (0-99); HEMATOCRIT 39.7 % (40.0-51.0); HEMOGLOBIN 13.1 g/dL (13.7-17.5); LEFT SHIFT FLG 0 (0-99); LIPEMIA HEMOLYSIS FLAG 80 (0-99); MEAN CELL HEMOGLOBIN 28.9 pg (27.9-34.1); MEAN CELL VOLUME 87.6 fL (81.5-99.8); MEAN PLATELET VOLUME 9.1 fL (8.7-11.7); PLATELET CLUMPS FLAG 10 (0-99); PLATELET COUNT 352 10^3/uL (150-400); RED BLOOD CELL COUNT 4.53 10^6/uL (4.40-6.38); RED CELL DISTRIBUTION WIDTH 12.7 % (11.5-15.2)
[2017-01-04 05:01] LABS: ALBUMIN 3.5 g/dL (3.5-5.0); ANION GAP 14 mEq/L (8-16); CALCIUM 9.3 mg/dL (8.5-10.4); CARBON DIOXIDE 20 mEq/l (22-31); CHLORIDE 104 mEq/L (97-110); CREATININE 2.4 mg/dL (0.7-1.3); GLOMERULAR FILTRATION RATE 28; GLUCOSE 92 mg/dL (70-100); POTASSIUM 4.3 mEq/L (3.5-5.2); SODIUM 138 mEq/L (134-144)
[2017-01-04 09:52] LABS: CORTISOL/CREATININE RATIO 25 mcg/g Cr (1.0-119); CREATININE CONCENTRATION 187 mg/dL
[2017-01-04] MEDS: BISOPROLOL FUMARATE 5 MG TAB PO SCH (10:59)
[2017-01-04] MEDS: hydrALAZINE 25 MG TAB PO SCH ×3 (11:00→21:20)
[2017-01-04] MEDS: MULTIVITAMINS W-MINERALS 1 EACH TAB PO SCH (11:00)
[2017-01-04] MEDS: predniSONE 20 MG TAB PO SCH (11:00)
[2017-01-04] MEDS: ASPIRIN 81 MG CHEWABLE TAB PO SCH (11:01)
--- NOTE | 2017-01-04 13:39 | SOAPPROG ---
SOAP Progress Note Assessment/Plan: Assessment: HTN-Unstable -possibly due to TYLER -s/p angio and stent L renal artery 01/03 -BP improved and currently 150s-160s which is ok post procedure (keep at this range for now)- can gradually titrate meds as needed over next several days -no ramone/arb currently AMY on CKD3- non-oliguric -baseline Cr 1.6-1.9 -element from NSAIDs, lowering of HTN, contrast. Hb stable post procedure. Acute bump overnight likely hemodynamic. -Cr up to 2.4 today- lwould not lower BP further at this point, monitor. Further eval if Cr continues to rise in am Gout-had been using indocin at home -given baseline CKD, this would be contraindicated -on prednisone Secondary Hyperparathyroidism -control phos and will need Vit D3 replacement once AMY/phos stable Ewa Fink MD [facility] [phone] pager 01/04/17 15:25 Subjective: Sleeping when I came by. Cr bumped, good UOP. BP running 150s-160s. Objective: Vital Signs Temp Pulse Resp BP Pulse Ox 36.7 C 89 16 153/86 H 90 L 01/04/17 11:35 01/04/17 11:35 01/04/17 11:35 01/04/17 11:35 01/04/17 11:35 Laboratory Results 01/04/17 03:51 01/04/17 03:51 01/03/17 01/04/17 01/05/17 05:59 05:59 05:59 Intake Total 500 720 Output Total 600 1200 Balance -100 -480 PT 12.9 SEC (12.0-15.0) 01/03/17 04:02 INR 0.98 (0.83-1.16) 01/03/17 04:02 Physical Exam - Physical Exam General Appearance: no apparent distress, other (sleeping but arousable) Respiratory: lungs clear Cardiac/Chest: regular rate, rhythm, other (no rub) Abdomen: normal bowel sounds, non-tender, soft Extremities: other (no edema) ICD10 Worksheet Patient Problems: Problems Problem Status Onset Hypertensive urgency Acute Kidney failure Acute Chronic Disease Management/Transitional Care Program Active
--- NOTE | 2017-01-04 13:53 | HOSPPROG ---
Hospitalist Progress Note Assessment/Plan: # Acute hypertensive urgency- patient presented with blood pressures in the 230s to 240 s/p stenting of TYLER with marked improvement Telemetry (personally reviewed and interpreted) sinus rhythm without acute changes- oxygen saturations 95% on room air SBP overnight in 150-170's - continue bisoprolol 5 mg daily - hold hydralazine for SBP <160 - continue holding Fredo inhibitors and ARB # New dx TYLER - blood pressure improved post procedure # Acute kidney injury- creatinine 2.1-> 1.7 -> 2.4 this a.m. - continue holding NSAIDs - avoid lowering SBP below 150's - recheck ren # acute gout flare- patient with marked pain of the right great toe and 2nd toe - improved overnight with prednisone Has crystal confirmed diagnosis of gout in the past- was using NSAIDs at home - continue holding NSAIDs - continue p.o. prednisone - continue p.r.n. pain meds # coronary artery disease- history of- no current chest pain complaints - continue home medications - continue aggressive blood pressure control # proph - heparin pt refusing - encourage ambulation # diet cardiac- cardiac diet # disposition greater than 2 midnights as requiring cardiac monitoring active titration of blood pressure medications and evaluation for possible diagnosis of renal artery stenosis I have discussed the case with nephrology- avoid lowering blood pressure beyond current parameters Subjective: No chest pain feels well Objective: Vital Signs Temp Pulse Resp BP Pulse Ox 36.7 C 89 16 153/86 H 90 L 01/04/17 11:35 01/04/17 11:35 01/04/17 11:35 01/04/17 11:35 01/04/17 11:35 Laboratory Results 01/04/17 03:51 01/04/17 03:51 01/03/17 01/04/17 01/05/17 05:59 05:59 05:59 Intake Total 500 720 Output Total 600 1200 Balance -100 -480 PT 12.9 SEC (12.0-15.0) 01/03/17 04:02 INR 0.98 (0.83-1.16) 01/03/17 04:02 - Physical Exam Constitutional: appears nourished Eyes: anicteric sclera Ears, Nose, Mouth, Throat: moist mucous membranes Cardiovascular: regular rate and rhythym Respiratory: no respiratory distress, no rales or rhonchi Gastrointestinal: normoactive bowel sounds, soft, non-tender abdomen Genitourinary: no bladder fullness Skin: warm, normal color Musculoskeletal: No asymmetric calves Neurologic: AAOx3 Psychiatric: interacting appropriately, not anxious Lymph, Heme, Immunologic: no cervical LAD ICD10 Worksheet Patient Problems: Problems Problem Status Onset Hypertensive urgency Acute Kidney failure Acute Chronic Disease Management/Transitional Care Program Active
[2017-01-04] MEDS: hydrALAZINE 20 MG/ML VIAL IVP PRN (18:59)
[2017-01-05] MEDS: hydrALAZINE 20 MG/ML VIAL IVP PRN (03:11)
[2017-01-05 04:24] LABS: % IMMATURE GRANULYOCYTES 0.6 % (0.0-1.1); ABSOLUTE IMMATURE GRANULOCYTES 0.11 10^3/uL (0.00-0.10); ADD DIFF? NO; ADD MORPH? NO; ADD SCAN? NO; ATYPICAL LYMPHOCYTE FLAG 0 (0-99); FRAGMENT RBC FLAG 0 (0-99); HEMATOCRIT 40.7 % (40.0-51.0); HEMOGLOBIN 13.6 g/dL (13.7-17.5); LEFT SHIFT FLG 0 (0-99); LIPEMIA HEMOLYSIS FLAG 80 (0-99); MEAN CELL HEMOGLOBIN 28.9 pg (27.9-34.1); MEAN CELL HEMOGLOBIN CONCENTR. 33.4 g/dL (32.4-36.7); MEAN CELL VOLUME 86.6 fL (81.5-99.8); MEAN PLATELET VOLUME 9.2 fL (8.7-11.7); PLATELET CLUMPS FLAG 0 (0-99); PLATELET COUNT 385 10^3/uL (150-400); RED CELL DISTRIBUTION WIDTH 12.2 % (11.5-15.2)
[2017-01-05 04:37] LABS: ALBUMIN 3.5 g/dL (3.5-5.0); ANION GAP 14 mEq/L (8-16); CALCIUM 9.2 mg/dL (8.5-10.4); CARBON DIOXIDE 19 mEq/l (22-31); CHLORIDE 104 mEq/L (97-110); CREATININE 2.1 mg/dL (0.7-1.3); GLOMERULAR FILTRATION RATE 33; GLUCOSE 132 mg/dL (70-100); POTASSIUM 4.7 mEq/L (3.5-5.2); SODIUM 137 mEq/L (134-144)
[2017-01-05] MEDS: ASPIRIN 81 MG CHEWABLE TAB PO SCH (08:44)
[2017-01-05] MEDS: BISOPROLOL FUMARATE 5 MG TAB PO SCH (08:45)
[2017-01-05] MEDS: predniSONE 20 MG TAB PO SCH (08:45)
[2017-01-05] MEDS: hydrALAZINE 25 MG TAB PO SCH ×3 (08:45→21:53)
[2017-01-05] MEDS ORDERED: hydrALAZINE 25 MG TAB PO ONE (09:09)
[2017-01-05] MEDS: MULTIVITAMINS W-MINERALS 1 EACH TAB PO SCH (09:23)
--- NOTE | 2017-01-05 13:53 | HOSPPROG ---
Hospitalist Progress Note Assessment/Plan: # Acute hypertensive urgency- patient presented with blood pressures in the 230s to 240 s/p stenting of TYLER with marked improvement Telemetry (personally reviewed and interpreted) sinus rhythm - oxygen saturations 94% on room air SBP overnight in up from 150-170's to 200's - continue bisoprolol 5 mg daily - increase hydralazine to 50mg TID - continue holding Fredo inhibitors and ARB # New dx TYLER - blood pressure improved post procedure # Acute kidney injury- creatinine 1.7 -> 2.4 -> 2.1 this a.m. discuss with renal would benefit from additional day to monitor that it continues to drop and that the stent does not need eval - continue holding NSAIDs - recheck in am # acute gout flare- patient with marked pain of the right great toe and 2nd toe - improved overnight with prednisone Has crystal confirmed diagnosis of gout in the past- was using NSAIDs at home - continue holding NSAIDs - stopping p.o. prednisone today - continue p.r.n. pain meds # coronary artery disease- history of- no current chest pain complaints - continue home medications - continue aggressive blood pressure control # proph - heparin pt refusing - encourage ambulation # diet cardiac- cardiac diet # disposition greater than 2 midnights as requiring cardiac monitoring active titration of blood pressure medications and evaluation for possible diagnosis of renal artery stenosis I have discussed the case with nephrology- need additional time to monitor - if BP down and creatinine down can dc tomorrow am Subjective: denies pain Objective: Vital Signs Temp Pulse Resp BP Pulse Ox 36.8 C 67 13 178/98 H 93 01/05/17 11:51 01/05/17 11:51 01/05/17 11:51 01/05/17 11:51 01/05/17 11:51 Laboratory Results 01/05/17 03:20 01/05/17 03:20 01/04/17 01/05/17 01/06/17 05:59 05:59 05:59 Intake Total 720 900 Output Total 1200 600 Balance -480 300 PT 12.9 SEC (12.0-15.0) 01/03/17 04:02 INR 0.98 (0.83-1.16) 01/03/17 04:02 - Physical Exam Constitutional: appears nourished Eyes: anicteric sclera Ears, Nose, Mouth, Throat: moist mucous membranes Cardiovascular: regular rate and rhythym Respiratory: no respiratory distress, no rales or rhonchi Gastrointestinal: normoactive bowel sounds, soft, non-tender abdomen Genitourinary: no bladder fullness Skin: warm, normal color Musculoskeletal: No asymmetric calves Neurologic: AAOx3 Psychiatric: interacting appropriately, not anxious Lymph, Heme, Immunologic: no cervical LAD ICD10 Worksheet Patient Problems: Problems Problem Status Onset Hypertensive urgency Acute Kidney failure Acute Chronic Disease Management/Transitional Care Program Active
--- NOTE | 2017-01-05 15:46 | SOAPPROG ---
SOAP Progress Note Assessment/Plan: Assessment: HTN-Unstable, likely TYLER contributing -s/p angio and stent L renal artery 01/03 -BP improved to 150s-160s yesterday but now 170s-180s after increase in hydralazine dose this am (was 200s this am). Expect some lability post procedure. Have increased hydralazine 50mg po tid this am. Needs gradual lowering over next few days- I think 160s-170s ok for today. I discussed need for home BP monitoring and close clinic f/u- reviewed reasons he would need to come back to ER. If BP in this range and Cr stable/better, could d/c in am with close clinic f/u (he has our contact info to call as well). -no ramone/arb currently AMY on CKD3- non-oliguric -baseline Cr 1.6-1.9 -element from NSAIDs, lowering of HTN, contrast. Hb stable post procedure. Acute bump o likely hemodynamic. -Cr up to 2.4 Sat, now 2.1- suspect hemodynamic. IR report suggests R kidney with collaterals (no stenting done) so even if stent occluded on L, I don 't think it would fully explain bump in Cr. No pre-renal or obstructive symptoms. I would like to see his Cr trend tomorrow and if stable/ continues to improve, I think could d/c in am with close lab f/u in next few days. Gout-had been using indocin at home -given baseline CKD, this would be contraindicated -on prednisone Secondary Hyperparathyroidism -control phos and will need Vit D3 replacement once AMY/phos stable I discussed with Dr. Esquivel and RN Ewa Fink MD [facility] [phone] pager 01/05/17 16:54 Subjective: Feels well. Denies JESSICA, sob, n/v, diarrhea. Eating/drinking ok. I spoke to hospitalist this am and hydralazine dose increased- BP running 170s-180s this afternoon. He has BP cuff at home, asking if can go home in morning as worried about missing work. Objective: Vital Signs Temp Pulse Resp BP Pulse Ox 36.8 C 67 13 178/98 H 93 01/05/17 11:51 01/05/17 11:51 01/05/17 11:51 01/05/17 11:51 01/05/17 11:51 Laboratory Results 01/05/17 03:20 01/05/17 03:20 01/04/17 01/05/17 01/06/17 05:59 05:59 05:59 Intake Total 720 900 Output Total 1200 600 Balance -480 300 PT 12.9 SEC (12.0-15.0) 01/03/17 04:02 INR 0.98 (0.83-1.16) 01/03/17 04:02 Physical Exam - Physical Exam General Appearance: alert, no apparent distress EENT: other (mmm) Cardiac/Chest: regular rate, rhythm Skin: warm/dry Extremities: other (no edema) Neuro/Psych: alert, oriented x 3 ICD10 Worksheet Patient Problems: Problems Problem Status Onset Hypertensive urgency Acute Kidney failure Acute Chronic Disease Management/Transitional Care Program Active
[2017-01-05 23:22] VITALS: RESP 18
[2017-01-06 04:27] LABS: % IMMATURE GRANULYOCYTES 0.7 % (0.0-1.1); ABSOLUTE IMMATURE GRANULOCYTES 0.14 10^3/uL (0.00-0.10); ADD DIFF? NO; ADD MORPH? NO; ADD SCAN? NO; ATYPICAL LYMPHOCYTE FLAG 0 (0-99); FRAGMENT RBC FLAG 0 (0-99); LEFT SHIFT FLG 0 (0-99); LIPEMIA HEMOLYSIS FLAG 80 (0-99); MEAN CELL HEMOGLOBIN 28.7 pg (27.9-34.1); MEAN CELL HEMOGLOBIN CONCENTR. 33.3 g/dL (32.4-36.7); MEAN CELL VOLUME 86.1 fL (81.5-99.8); MEAN PLATELET VOLUME 9.1 fL (8.7-11.7); PLATELET CLUMPS FLAG 0 (0-99); PLATELET COUNT 378 10^3/uL (150-400); RED BLOOD CELL COUNT 4.88 10^6/uL (4.40-6.38); RED CELL DISTRIBUTION WIDTH 12.2 % (11.5-15.2)
[2017-01-06 04:28] LABS: ALBUMIN 3.5 g/dL (3.5-5.0); ANION GAP 10 mEq/L (8-16); CALCIUM 9.6 mg/dL (8.5-10.4); CARBON DIOXIDE 20 mEq/l (22-31); CHLORIDE 105 mEq/L (97-110); CREATININE 2.2 mg/dL (0.7-1.3); GLOMERULAR FILTRATION RATE 31; GLUCOSE 108 mg/dL (70-100); POTASSIUM 4.3 mEq/L (3.5-5.2); SODIUM 135 mEq/L (134-144)
[2017-01-06] MEDS: hydrALAZINE 20 MG/ML VIAL IVP PRN (04:44)
[2017-01-06] MEDS ORDERED: LABETALOL HCL 5 MG/ML 20 ML MDV IVP ONE (05:49)
[2017-01-06] MEDS: BISOPROLOL FUMARATE 5 MG TAB PO SCH (07:28)
[2017-01-06] MEDS: MULTIVITAMINS W-MINERALS 1 EACH TAB PO SCH (07:28)
[2017-01-06] MEDS: ASPIRIN 81 MG CHEWABLE TAB PO SCH (07:28)
[2017-01-06] MEDS: hydrALAZINE 25 MG TAB PO SCH (07:29)
[2017-01-06 08:16] VITALS: PULSE 78; TEMP 98.3; O2SAT 95
--- NOTE | 2017-01-06 08:49 | SOAPPROG ---
SOAP Progress Note Assessment/Plan: Assessment:Plan: HTN-remains elevated and fluctuating -BP unchanged -possibly due to TYLER -s/p angiogram and DEVELOPMENT ENG Friday -hydralazine increased over the weekend -add ARB due to LVH -will increase beta manish once ARB at maximum dose ARF-creatinine up and down -element from NSAIDs and/or HTN -may not be autoregulating well after DEVELOPMENT ENG -okay to add ARB due to BP concerns Gout-had been using indocin at home -given baseline CKD, this would be contraindicated -s/p prednisone CKD-baseline creatinine 1.6 to 1.9 -not yet stable -lytes and volume status okay Dispo-likely can go home today with f/u in Nephrology later in the week -home BP monitoring twice a day 01/06/17 08:50 Subjective: lying flat in bed, tired Objective: Vital Signs Temp Pulse Resp BP Pulse Ox 36.8 C 78 18 177/96 H 95 01/06/17 08:00 01/06/17 08:00 01/06/17 08:00 01/06/17 08:00 01/06/17 08:00 Laboratory Results 01/06/17 03:37 01/06/17 03:37 01/05/17 01/06/17 01/07/17 05:59 05:59 05:59 Intake Total 900 1020 Output Total 600 Balance 300 1020 PT 12.9 SEC (12.0-15.0) 01/03/17 04:02 INR 0.98 (0.83-1.16) 01/03/17 04:02 Physical Exam - Physical Exam General Appearance: WD/WN, no apparent distress EENT: normal ENT inspection Neck: normal inspection Respiratory: lungs clear, normal breath sounds, No respiratory distress Cardiac/Chest: regular rate, rhythm, No diastolic murmur, No systolic murmur Abdomen: normal bowel sounds, non-tender, soft, No organomegaly, No hepatomegaly , No splenomegaly Skin: normal color, warm/dry Extremities: No swelling Neuro/Psych: no motor/sensory deficits, normal mood/affect ICD10 Worksheet Patient Problems: Problems Problem Status Onset Hypertensive urgency Acute Kidney failure Acute Chronic Disease Management/Transitional Care Program Active
[2017-01-06] MEDS ORDERED: LOSARTAN POTASSIUM 25 MG TAB PO SCH (09:00)
[2017-01-06 10:26] VITALS: BP 151/86
[2017-01-06 11:00] LABS: RENIN ACTIVITY PLASMA 1.8 ng/mL/h
--- NOTE | 2017-01-06 15:25 | GDS ---
[f rep st] DISCHARGE SUMMARY DISCHARGE DIAGNOSES: 1. Hypertensive urgency. 2. Renal artery stenosis, new diagnosis. 3. Acute kidney injury. 4. Acute gout flare. 5. Coronary artery disease, stable. IMAGING STUDIES AND PROCEDURES: 1. Renal ultrasound on January 01 showed left main renal artery with flow limiting stenosis. 2. Echocardiogram on January 01 showed moderate LVH with low normal systolic function and evidence of diastolic dysfunction, mild mitral regurgitation, mild tricuspid regurgitation and mild aortic regu rgitation and EF of 50% to 55%. 3. Bilateral renal arteriography with stenting of the left renal artery performed by Interventional Radiology, January 03, 2017. CONSULTANTS: Chapito Maritnez, Nephrology. HISTORY: For details, please see dictated history and physical dated January 01, 2017. In brief, the patient is a 56-year-old male with a history of hypertension, coronary artery disease, who presente d to the emergency department with a blood pressure in the 200 systolic. He was asymptomatic. He w as admitted to the hospital for further management. HOSPITAL COURSE: The patient was admitted to the telemetry unit. He was initially treated with IV hydralazine, IV propranolol with a goal of systolic reduction of 20% to 25%. His outpatient medicat ions were uptitrated including increase in his bisoprolol from 2.5 mg to 5 mg daily, his hydralazine was increased from 10 mg t.i.d. to 50 mg t.i.d. and losartan was started at 25 mg daily at the [facility]. He had very labile blood pressures initially and renal ultrasound was concerni ng for renal artery stenosis. He underwent arteriography and a left renal artery stent was placed b y Interventional Radiology with immediate improvement in his blood pressures. His creatinine on arr ival was 2.1, and this has fluctuated from 1.7 to 2.1, those overall have been stable. On the day o f discharge, his blood pressure was improved to 150s over 80s. He was treated for acute gout with o ral prednisone, this likely precipitated leukocytosis. He has had no fevers or other infectious paula rces. His prednisone course has been completed. He should have a followup basic metabolic panel an d CBC in 3 to 5 days as well as close followup with Nephrology later in the week. DISPOSITION: Patient is discharged home in stable condition. He will do home blood pressure monito ring. FOLLOWUP: 1. Follow up with Dr. Chapito Martinez, Nephrology, in 3-5 days. 2. . Fernando Ribeiro, primary care. DISCHARGE MEDICATIONS: Please see [facility] for complete updated outpatient medication list. New me dications on discharge include bisoprolol 5 mg p.o. daily #30, no refills. Hydralazine 50 mg p.o. t .i.d., #180, no refills, losartan 25 mg p.o. daily, #30, no refills. He will continue his aspirin, multivitamin. Potassium is discontinued since he is starting on losartan to avoid hyperkalemia. Co ntinue also add under followup. /[id number]/MODL
== END 2017-01-06 11:17 | disposition home or self-care (01) | DRG 674 ==
LOC: F2W 12:29
PROVIDERS: ADMIT Internal Medicine; ATTEND Hospitalist
PROC: 047A3DZ Dilation of Left Renal Artery with Intraluminal Device, Percutaneous Approach (ICD-10-PCS; principal; 2017-01-03)
PROC: B44 Imaging, Lower Arteries, Ultrasonography (ICD-10-PCS; principal; 2017-01-03)
DX: I70.1 Atherosclerosis of renal artery (principal); N17.9 Acute kidney failure, unspecified; I16.0 Hypertensive urgency; N25.81 Secondary hyperparathyroidism of renal origin; I12.9 Hypertensive chronic kidney disease with stage 1 through stage 4 chronic kidney disease, or unspecified chronic kidney disease; N18.3 Chronic kidney disease, stage 3 (moderate); M10.072 Idiopathic gout, left ankle and foot; I25.10 Atherosclerotic heart disease of native coronary artery without angina pectoris; I51.7 Cardiomegaly; Z95.5 Presence of coronary angioplasty implant and graft
CPT/HCPCS: 82088-90; 82530-90; 83789-90; 84244-90; 96374; C1769; C1876; C1894; G0472; J0360; J1610; J1644; J2250; J3010; J3490; Q9967

== ENCOUNTER 2017-08-20 13:27 | Inpatient (IN) | payer OTHER ==
--- NOTE | 2017-08-20 13:55 | EDPHY ---
H & P Time Seen by Provider: 08/20/17 13:54 HPI/ROS: Chief complaint. Low back pain, loss of appetite HPI. Patient is a 57-year-old male presents emergency department with complaint of discomfort"right where my kidneys are". He has had discomfort for 3-4 days on both flanks. Denies injury or unusual activity. He does note increased stress. No urinary symptoms. No fever, cough, chest discomfort, trouble breathing. No radiation to his legs. Denies bowel or bladder symptoms. No numbness or tingling on his legs or thighs. He does have a stent in 1 of his renal arteries secondary to renal artery occlusion. The patient has also been seen for hypertensive urgency in the past. ROS Constitutional. no fever/chills, no weakness Eyes. no problems with vision ENT. no sore throat, no nasal drainage Cardiovascular. no chest pain Respiratory. no shortness of breath, no cough Abdominal. no abdominal pain, no nausea/vomiting, no diarrhea . no problems urinating MS. Bilateral flank pain Skin. no rash Lymph. no swollen glands Neuro. no headache, no dizziness, no difficulty walking or with speech Past Medical/Surgical History: Hypertension, congestive heart failure, heart catheterization with stents, renal artery stent Social History: , nonsmoker, no alcohol Smoking Status: Former smoker Physical Exam: General Appearance: Alert well-developed male mild distress vital signs significant for blood pressure 229/124 Eyes: Pupils equal and round no pallor or injection. ENT, Mouth: Mucous membranes are moist. Respiratory: There are no retractions, lungs are clear to auscultation. Cardiovascular: Regular rate and rhythm. Gastrointestinal: Abdomen is soft and nontender, no masses, bowel sounds normal. Neurological: Awake and alert, sensory and motor exams grossly normal. Skin: Warm and dry, no rashes. Musculoskeletal: Neck is supple nontender. Extremities symmetrical, full range of motion. Psychiatric: Patient is oriented X 3, there is no agitation. Constitutional: Initial Vital Signs Temperature (C) 36.9 C 08/20/17 13:30 Heart Rate 79 08/20/17 13:30 Respiratory Rate 20 08/20/17 13:30 Blood Pressure 229/124 H 08/20/17 13:30 O2 Sat (%) 97 08/20/17 13:30 O2 Delivery Mode Room Air Allergies/Adverse Reactions: No Known Allergies Allergy (Verified 08/20/17 13:30) Home Medications: Medication Instructions Recorded Aspirin [Aspirin 81mg (*)] 81 mg PO DAILY 11/22/13 Multivitamin with Minerals 1 each PO DAILY 01/01/17 [Multiple Vitamin] Bisoprolol Fumarate [Zebeta (*)] 5 mg PO DAILY #30 tab 01/06/17 Losartan Potassium [Cozaar 25 mg 25 mg PO DAILY #30 tab 01/06/17 (*)] hydrALAZINE [Apresoline] 50 mg PO TID #180 tab 01/06/17 Medical Decision Making Procedures: IV normal saline. Patient is given his regular 4:00 p.m. Blood pressure medications which are losartan 25 mg and hydralazine 50 mg orally. ED Course/Re-evaluation: Re-evaluation at 3:45 p.m.--blood pressure 228/128. Patient is stable. He is just given us a urine sample. 4:30 p.m. blood pressure is 266/138. As oral medications are not controlling his blood pressure he will be given IV labetalol After labetalol 20 mg IV approximately 15 min later blood pressure is 214/121. He is placed on a labetalol drip. I have consulted and discussed the case with Dr. Aguilar, hospitalist, who agrees to the admission Differential Diagnosis: I do not find any evidence of acute coronary syndrome or urinary tract infection or kidney stones. Hypertensive urgency that has not been controlled by the patient's regular blood pressure medications. Admission for blood pressure control and potential evaluation of the renal artery stent - Data Points Laboratory Results: Laboratory Results 08/20/17 14:00 08/20/17 14:00 08/20/17 08/20/17 08/20/17 15:45 14:00 14:00 WBC 12.52 10^3/uL H 10^3/uL (3.80-9.50) RBC 5.62 10^6/uL 10^6/uL (4.40-6.38) Hgb 16.5 g/dL g/dL (13.7-17.5) Hct 48.3 % % (40.0-51.0) MCV 85.9 fL fL (81.5-99.8) MCH 29.4 pg pg (27.9-34.1) MCHC 34.2 g/dL g/dL (32.4-36.7) RDW 12.9 % % (11.5-15.2) Plt Count 299 10^3/uL 10^3/uL (150-400) MPV 9.3 fL fL (8.7-11.7) Neut % (Auto) 83.3 % H % (39.3-74.2) Lymph % (Auto) 8.1 % L % (15.0-45.0) [place] % (Auto) 7.4 % % (4.5-13.0) Eos % (Auto) 0.5 % L % (0.6-7.6) Baso % (Auto) 0.3 % % (0.3-1.7) Nucleat RBC Rel Count 0.0 % % (0.0-0.2) Absolute Neuts (auto) 10.42 10^3/uL H 10^3/uL (1.70-6.50) Absolute Lymphs (auto) 1.02 10^3/uL 10^3/uL (1.00-3.00) Absolute Monos (auto) 0.93 10^3/uL H 10^3/uL (0.30-0.80) Absolute Eos (auto) 0.06 10^3/uL 10^3/uL (0.03-0.40) Absolute Basos (auto) 0.04 10^3/uL 10^3/uL (0.02-0.10) Absolute Nucleated RBC 0.00 10^3/uL 10^3/uL (0-0.01) Immature Gran % 0.4 % % (0.0-1.1) Immature Gran # 0.05 10^3/uL 10^3/uL (0.00-0.10) Sodium 145 mEq/L mEq/L (135-145) Potassium 4.1 mEq/L mEq/L (3.5-5.2) Chloride 107 mEq/L mEq/L (97-110) Carbon Dioxide 21 mEq/l L mEq/l (22-31) Anion Gap 17 mEq/L H mEq/L (8-16) BUN 21 mg/dL mg/dL (7-23) Creatinine 1.6 mg/dL H mg/dL (0.7-1.3) Estimated GFR 45 Glucose 93 mg/dL mg/dL (70-100) Calcium 9.5 mg/dL mg/dL (8.5-10.4) Urine Color YELLOW Urine Appearance CLEAR Urine pH 5.0 (5.0-7.5) Ur Specific [place] 1.014 (1.002-1.030) Urine Protein NEGATIVE (NEGATIVE) Urine Ketones NEGATIVE (NEGATIVE) Urine Blood NEGATIVE (NEGATIVE) Urine Nitrate NEGATIVE (NEGATIVE) Urine Bilirubin NEGATIVE (NEGATIVE) Urine Urobilinogen NEGATIVE EU EU (0.2-1.0) Ur Leukocyte Esterase NEGATIVE (NEGATIVE) Urine RBC 1-3 /hpf /hpf (0-3) Urine WBC 1-3 /hpf /hpf (0-3) Ur Epithelial Cells NONE SEEN /lpf /lpf (NONE-1+) Urine Mucus TRACE /lpf /lpf (NONE-1+) Urine Glucose NEGATIVE (NEGATIVE) Medications Given: Losartan Potassium (Cozaar) 25 mg PO DAILY POPEYE Stop: 02/16/18 14:29 Last Admin: 08/20/17 14:33 Dose: 25 mg Discontinued Medications Hydralazine HCl (Apresoline) 50 mg PO ONCE ONE Stop: 08/20/17 14:31 Last Admin: 08/20/17 14:33 Dose: 50 mg Sodium Chloride (Ns) 1,000 mls @ 0 mls/hr IV EDNOW ONE; Wide Open PRN Reason: Protocol Stop: 08/20/17 14:19 Last Admin: 08/20/17 14:24 Dose: 1,000 mls Labetalol HCl (Trandate Injection) 20 mg IVP EDNOW ONE Stop: 08/20/17 16:32 Last Admin: 08/20/17 16:39 Dose: 20 mg Lorazepam (Ativan) 1 mg PO EDNOW ONE Stop: 08/20/17 14:48 Last Admin: 08/20/17 14:51 Dose: 1 mg Departure - Departure Disposition: [facility] Clinical Impression: Hypertensive urgency Condition: Fair Referrals: NONE *PRIMARY CARE P,. [Primary Care Provider] - As per Instructions
[2017-08-20] MEDS ORDERED: NS 1,000 ML IV ONE (14:18)
[2017-08-20 14:28] LABS: PLATELET COUNT 299 10^3/uL (150-400)
[2017-08-20] MEDS ORDERED: LOSARTAN POTASSIUM 25 MG TAB PO SCH (14:30)
[2017-08-20] MEDS ORDERED: LORazepam 1 MG TAB ONE (14:43)
[2017-08-20] MEDS ORDERED: LORazepam 1 MG TAB PO ONE (14:47)
[2017-08-20] MEDS ORDERED: LABETALOL HCL 5 MG/ML 20 ML MDV IVP ONE (16:31)
[2017-08-20] MEDS ORDERED: LABETALOL HCL 200 MG in D5W 200 ML IV SCH (17:00)
[2017-08-20] MEDS ORDERED: ONDANSETRON DISINTEGRATING 4 MG TAB PO PRN (17:24)
[2017-08-20] MEDS ORDERED: LORazepam 2 MG/ML INJ IVP PRN (17:24)
[2017-08-20] MEDS ORDERED: LORazepam 0.5 MG TAB PO PRN (17:24)
[2017-08-20] MEDS ORDERED: ACETAMINOPHEN 325 MG TAB PO PRN (17:24)
[2017-08-20] MEDS ORDERED: oxyCODONE IR 5 MG TAB PO PRN (17:24)
[2017-08-20] MEDS ORDERED: ONDANSETRON 4 MG/2 ML VIAL IVP PRN (17:24)
--- NOTE | 2017-08-20 17:32 | PDGENHP ---
History and Physical - Chief Complaint low back pain - History of Present Illness 57 yo male with hx of HTN, HTN urgency, and left renal artery stenosis s/p stenting presents with malaise and is found to have BP is the 230's systolic. He reports lots of anxiety and stress over losing his job recently. In the E.D, he was started on multiple BP agents without improvement and ultimately he was started on Labetalol Drip. BP's have improved to 160's systolic. Denies injury or unusual activity. He does note increased stress. No urinary symptoms. No fever, cough, chest discomfort, trouble breathing. No radiation to his legs. Denies bowel or bladder symptoms. No numbness or tingling on his legs or thighs. PMHx: Gout HTN CAD s/p stent CHF LVH Chronic Renal Failure HTN urgency Left Renal artery stenosis PSHx: cardiac cath Left renal artery stent SHX: non smoker no illicits no ETOH FMHX: DMII ALL: NKDA MED: SEE MED REC Labs: WBC 12.2, Cr. 1.6 History Information - Allergies/Home Medication List Allergies/Adverse Reactions: No Known Allergies Allergy (Verified 08/20/17 13:30) Home Medications: Aspirin EC [Aspirin EC 81 mg (*)] 81 mg PO DAILY 08/20/17 [Last Taken 08/19/17] Bisoprolol Fumarate [Zebeta (*)] 5 mg PO HS 08/20/17 [Last Taken 08/19/17 23:30] Losartan Potassium [Cozaar 25 mg (*)] 25 mg PO DAILY 08/20/17 [Last Taken ] hydrALAZINE [Apresoline 50 mg (*)] 50 mg PO TID 08/20/17 [Last Taken 08/20/17 14 :30] I have personally reviewed and updated: medical history, social history - Social History Smoking Status: Former smoker Review of Systems Review of Systems: ROS: 10pt was reviewed & negative except for what was stated in HPI & below Physical Exam Physical Exam: Temp Pulse Resp BP Pulse Ox 36.9 C 79 18 209/125 H 96 08/20/17 13:30 08/20/17 16:46 08/20/17 16:46 08/20/17 16:46 08/20/17 16:10 Constitutional: no apparent distress Eyes: PERRL, EOMI Ears, Nose, Mouth, Throat: moist mucous membranes, hearing normal Cardiovascular: regular rate and rhythym, no murmur, rub, or gallop, No edema Respiratory: no respiratory distress, no rales or rhonchi, clear to auscultation Gastrointestinal: normoactive bowel sounds, soft, non-tender abdomen, no palpable masses Skin: warm Musculoskeletal: full muscle strength Neurologic: AAOx3 Psychiatric: interacting appropriately, not anxious, not encephalopathic Lab Data & Imaging Review 08/20/17 14:00 08/20/17 14:00 WBC 12.52 10^3/uL (3.80-9.50) H 08/20/17 14:00 RBC 5.62 10^6/uL (4.40-6.38) 08/20/17 14:00 Hgb 16.5 g/dL (13.7-17.5) 08/20/17 14:00 Hct 48.3 % (40.0-51.0) 08/20/17 14:00 MCV 85.9 fL (81.5-99.8) 08/20/17 14:00 MCH 29.4 pg (27.9-34.1) 08/20/17 14:00 MCHC 34.2 g/dL (32.4-36.7) 08/20/17 14:00 RDW 12.9 % (11.5-15.2) 08/20/17 14:00 Plt Count 299 10^3/uL (150-400) 08/20/17 14:00 MPV 9.3 fL (8.7-11.7) 08/20/17 14:00 Neut % (Auto) 83.3 % (39.3-74.2) H 08/20/17 14:00 Lymph % (Auto) 8.1 % (15.0-45.0) L 08/20/17 14:00 [place] % (Auto) 7.4 % (4.5-13.0) 08/20/17 14:00 Eos % (Auto) 0.5 % (0.6-7.6) L 08/20/17 14:00 Baso % (Auto) 0.3 % (0.3-1.7) 08/20/17 14:00 Nucleat RBC Rel Count 0.0 % (0.0-0.2) 08/20/17 14:00 Absolute Neuts (auto) 10.42 10^3/uL (1.70-6.50) H 08/20/17 14:00 Absolute Lymphs (auto) 1.02 10^3/uL (1.00-3.00) 08/20/17 14:00 Absolute Monos (auto) 0.93 10^3/uL (0.30-0.80) H 08/20/17 14:00 Absolute Eos (auto) 0.06 10^3/uL (0.03-0.40) 08/20/17 14:00 Absolute Basos (auto) 0.04 10^3/uL (0.02-0.10) 08/20/17 14:00 Absolute Nucleated RBC 0.00 10^3/uL (0-0.01) 08/20/17 14:00 Immature Gran % 0.4 % (0.0-1.1) 08/20/17 14:00 Immature Gran # 0.05 10^3/uL (0.00-0.10) 08/20/17 14:00 Sodium 145 mEq/L (135-145) 08/20/17 14:00 Potassium 4.1 mEq/L (3.5-5.2) 08/20/17 14:00 Chloride 107 mEq/L (97-110) 08/20/17 14:00 Carbon Dioxide 21 mEq/l (22-31) L 08/20/17 14:00 Anion Gap 17 mEq/L (8-16) H 08/20/17 14:00 BUN 21 mg/dL (7-23) 08/20/17 14:00 Creatinine 1.6 mg/dL (0.7-1.3) H 08/20/17 14:00 Estimated GFR 45 08/20/17 14:00 Glucose 93 mg/dL (70-100) 08/20/17 14:00 Calcium 9.5 mg/dL (8.5-10.4) 08/20/17 14:00 Urine Color YELLOW 08/20/17 15:45 Urine Appearance CLEAR 08/20/17 15:45 Urine pH 5.0 (5.0-7.5) 08/20/17 15:45 Ur Specific [place] 1.014 (1.002-1.030) 08/20/17 15:45 Urine Protein NEGATIVE (NEGATIVE) 08/20/17 15:45 Urine Ketones NEGATIVE (NEGATIVE) 08/20/17 15:45 Urine Blood NEGATIVE (NEGATIVE) 08/20/17 15:45 Urine Nitrate NEGATIVE (NEGATIVE) 08/20/17 15:45 Urine Bilirubin NEGATIVE (NEGATIVE) 08/20/17 15:45 Urine Urobilinogen NEGATIVE EU (0.2-1.0) 08/20/17 15:45 Ur Leukocyte Esterase NEGATIVE (NEGATIVE) 08/20/17 15:45 Urine RBC 1-3 /hpf (0-3) 08/20/17 15:45 Urine WBC 1-3 /hpf (0-3) 08/20/17 15:45 Ur Epithelial Cells NONE SEEN /lpf (NONE-1+) 08/20/17 15:45 Urine Mucus TRACE /lpf (NONE-1+) 08/20/17 15:45 Urine Glucose NEGATIVE (NEGATIVE) 08/20/17 15:45 Assessment & Plan Assessment: #Hypertensive urgency (Acute) #Hx of Chronic renal failure, baseline around 2. Cr today is 1.6 #Leukocytosis #Anxiety Plan: BP has improved with Labetalol, however, we dont want to drive this further down. He likely has BP that is elevated intermittently. A review of his last hospitalization showed SBP in the 230's. Goal BP for tonight will be 180-190mmHg. This can be done with Labetalol and Hydralazine PRN. I will stop the drip It is unclear if he has been compliant with his home medications, I will order them. They may need additional modification I will get a renal ultrasound Lorazepam for anxiety PRN Heparin for DVT proph Full code total critical care time with this patient with HTN urgency is 65 minutes Plan: #HTN Urgency, hx of HTN #Chronic Renal failure, cr baseline appears to be 2 #Hx of Left Renal artery stenosis s/p stent #Leukocytosis, #Anxiety
--- NOTE | 2017-08-20 17:36 | ASMTLACE ---
WES Acuity / Level of Answers: Yes Care: Did the patient have an inpatient admission? Comorbidities - select Answers: Congestive heart failure all that apply Moderate or severe liver or renal disease # of Emergency department Answers: 1-2 visits in the last 6 months Score: 10 Date Signed: 08/20/2017 05:36 PM Electronically Signed By:Akiko Garzon RN
[2017-08-20] MEDS ORDERED: LABETALOL HCL IV SCH (19:30)
[2017-08-20] MEDS ORDERED: NS IV SCH (19:30)
[2017-08-20] MEDS ORDERED: BISOPROLOL FUMARATE 5 MG TAB PO SCH (21:00)
[2017-08-20] MEDS: HEPARIN 5,000 UNIT/0.5 ML INJ SC SCH (21:13)
[2017-08-21 03:52] LABS: PLATELET COUNT 229 10^3/uL (150-400)
[2017-08-21] MEDS: HEPARIN 5,000 UNIT/0.5 ML INJ SC SCH ×3 (06:17→22:42)
[2017-08-21] MEDS: ASPIRIN EC 81 MG TAB PO SCH (09:09)
[2017-08-21] MEDS: LOSARTAN POTASSIUM 25 MG TAB PO SCH (09:09)
[2017-08-21] MEDS ORDERED: ONDANSETRON DISINTEGRATING 4 MG TAB PO PRN (09:55)
[2017-08-21] MEDS: hydrALAZINE 20 MG/ML VIAL IVP PRN ×2 (10:06→17:47)
--- NOTE | 2017-08-21 10:11 | PDMN ---
Medical Necessity Medical necessity: Patient meets inpatient criteria per physician note and [facility] Hypertension (ongoing severe hypertension after initial ED treatment / BP 220's/ 110's; history of CRF with L renal artery stent; anticipated LOS > 2 midnights for IV labetalol gtt, transition to oral B/P meds in controlled, monitored environment.)
--- NOTE | 2017-08-21 12:10 | ASMTCASEMG ---
Living Arrangements What is your living Answers: With Spouse arrangement? Who do you live with? Type Of Residence What kind of residence do Answers: Apartment you live in? Discharge Plan Comments Coordination Status Comments Notes: Pts case discussed in tx rounds. Pt is a 57 y/o man admitted for hypertensive urgency. Pt was recently laid off from his job. Pt reports that his insurance coverage will end on 09/01/17. Pt is interested in applying for Medicaid. CM contacted [facility] to evaluate. Pt is agreeable to have CM make a new PCP appointment. CM scheduled pt an appointment w/ [facility] with Dr. Ortiz on 08/28/17 @ 8:30AM. CM inputted this info into pts d/c summary on [employer]. Pt will most likely not have any d/c needs at this time. CM available for changes. Plan: Independent Date Signed: 08/21/2017 12:10 PM Electronically Signed By:RADHA Munoz
--- NOTE | 2017-08-21 13:30 | HOSPPROG ---
Hospitalist Progress Note Assessment/Plan: * Hypertensive crisis -extreme BP elevation - symptomatic -increase bisoprolol, add amlodipine -continue PRN IV hydralazine -suspect poor baseline control - poor outpatient follow-up * CKD - at baseline 1.6 * Left renal artery stenosis s/p stent * CAD/stent * Gout Subjective: gets lightheaded with slight reduction in BP Objective: Vital Signs Temp Pulse Resp BP Pulse Ox 36.6 C 100 12 183/104 H 96 08/21/17 11:23 08/21/17 11:23 08/21/17 11:23 08/21/17 11:23 08/21/17 11:23 Laboratory Results 08/21/17 03:30 08/21/17 03:30 Renal US - negative old chart reviewed - renal artery stent place in IR late 2016. meds at discharge were same as they are upon presentation here now. - Physical Exam Constitutional: no apparent distress, appears nourished, not in pain Cardiovascular: regular rate and rhythym, no murmur, rub, or gallop Respiratory: no respiratory distress, no rales or rhonchi, clear to auscultation Gastrointestinal: normoactive bowel sounds, soft, non-tender abdomen, no palpable masses Skin: no rashes or abrasions, no fluctuance, no induration Neurologic: AAOx3, sensation intact bilaterally Psychiatric: interacting appropriately, not anxious, not encephalopathic, thought process linear ICD10 Worksheet Patient Problems: Problems Problem Status Onset Hypertensive urgency Acute Chronic Disease Management/Transitional Care Program Active Kidney failure Acute
[2017-08-21] MEDS: amLODIPine BESYLATE 5 MG TAB PO SCH (14:36)
[2017-08-21] MEDS: BISOPROLOL FUMARATE 5 MG TAB PO SCH (20:43)
[2017-08-22] MEDS: HEPARIN 5,000 UNIT/0.5 ML INJ SC SCH ×3 (05:52→22:10)
--- NOTE | 2017-08-22 08:37 | CPEKG ---
Heart Rate: 71 RR Interval: 845 P-R Interval: 176 QRSD Interval: 86 QT Interval: 408 QTC Interval: 444 P [place]: 55 QRS [place]: 1 T Wave [place]: 169 EKG Severity - ABNORMAL ECG - EKG Impression: SINUS RHYTHM EKG Impression: PROBABLE LEFT ATRIAL ABNORMALITY EKG Impression: PROBABLE LVH WITH SECONDARY REPOL ABNRM EKG Impression: ANTERIOR ST ELEVATION, PROBABLY DUE TO LVH Electronically Signed By: Lj Stanton 22-Aug-2017 12:53:11
[2017-08-22] MEDS: LOSARTAN POTASSIUM 25 MG TAB PO SCH (09:38)
[2017-08-22] MEDS: ASPIRIN EC 81 MG TAB PO SCH (09:38)
[2017-08-22] MEDS: BISOPROLOL FUMARATE 5 MG TAB PO SCH ×2 (09:39→20:32)
[2017-08-22] MEDS: amLODIPine BESYLATE 5 MG TAB PO SCH (09:39)
--- NOTE | 2017-08-22 13:06 | ASMTCMCOM ---
CM Note CM Note Notes: Pts case discussed in morning rounds. Med Data met w/ pt yesterday. Pt reports that he is uncertain if he would like to sign up for Medicaid at this point. Med Data left pt her card if he would like to apply for Medicaid. No other anticipated needs from CM at this point. CM available for changes. Plan: Independent Date Signed: 08/22/2017 01:05 PM Electronically Signed By:RADHA Munoz
--- NOTE | 2017-08-22 14:03 | HOSPPROG ---
Hospitalist Progress Note Assessment/Plan: * Hypertensive crisis -extreme BP elevation - symptomatic - slow improvement -increase bisoprolol, amlodipine -continue PRN IV hydralazine -suspect poor baseline control - poor outpatient follow-up * CKD - at baseline 1.6 * Left renal artery stenosis s/p stent * CAD/stent * Gout Subjective: Dizziness better. Some headache Objective: Vital Signs Temp Pulse Resp BP Pulse Ox 36.8 C 64 14 191/104 H 94 08/22/17 12:00 08/22/17 12:00 08/22/17 12:00 08/22/17 12:29 08/22/17 12:00 Laboratory Results 08/21/17 03:30 08/22/17 03:25 08/21/17 08/22/17 08/23/17 05:59 05:59 05:59 Intake Total 480 Balance 480 - Physical Exam Constitutional: no apparent distress, appears nourished, not in pain Cardiovascular: regular rate and rhythym, no murmur, rub, or gallop Respiratory: no respiratory distress, no rales or rhonchi, clear to auscultation Gastrointestinal: normoactive bowel sounds, soft, non-tender abdomen, no palpable masses Skin: no rashes or abrasions, no fluctuance, no induration Neurologic: AAOx3, sensation intact bilaterally Psychiatric: interacting appropriately, not anxious, not encephalopathic, thought process linear ICD10 Worksheet Patient Problems: Problems Problem Status Onset Hypertensive urgency Acute Chronic Disease Management/Transitional Care Program Active Kidney failure Acute
[2017-08-23] MEDS: HEPARIN 5,000 UNIT/0.5 ML INJ SC SCH (03:59)
[2017-08-23] MEDS: hydrALAZINE 20 MG/ML VIAL IVP PRN (05:07)
[2017-08-23] MEDS ORDERED: amLODIPine BESYLATE 5 MG TAB PO SCH (09:00)
[2017-08-23] MEDS: BISOPROLOL FUMARATE 5 MG TAB PO SCH (09:27)
[2017-08-23] MEDS: LOSARTAN POTASSIUM 25 MG TAB PO SCH (09:27)
[2017-08-23] MEDS: ASPIRIN EC 81 MG TAB PO SCH (09:27)
[2017-08-23 12:40] VITALS: BP 170/107
--- NOTE | 2017-08-23 14:11 | ASMTCMCOM ---
CM Note CM Note Notes: Spoke w/pt per MD request, discussed the importance of taking blood pressure medications consistently. Pt verbalizes understanding and states he will get a pill box to assist in him being more consistent with medication compliance. Pt states that in the past he had "too much going on with his schedule" but now realizes the importance. His RXs are ready at [facility], he also has a blood pressure cuff to monitor bp. Pt states he will f/u with Shelli from Medicaid to fill out paperwork. Pt has no other needs, will dc home w/support of . DC Plan: Independent Date Signed: 08/23/2017 02:10 PM Electronically Signed By:Rox Ann RN
--- NOTE | 2017-08-23 14:26 | GDS ---
[f rep st] DISCHARGE SUMMARY . DISCHARGE DIAGNOSES: 1. Hypertensive crisis. 2. Chronic kidney disease. Baseline creatinine 1.6. 3. Left renal artery stenosis, status post previous stent. 4. Coronary artery disease, status post previous stent. 5. Gout. HISTORY: The patient is a 57-year-old male with a known history of hypertension that has been diffic ult to control. On his last hospitalization, he had a stent placed in his left renal artery in conju nction with a nephrology consultation. His baseline creatinine is about 1.6. He does not have a [facility] doctor and there has been some question regarding compliance. He was admitted to the [facility] with extreme blood pressure elevations which were symptomatic. We up-titrated his medications an d he will need ongoing close followup to achieve better blood pressure control. His bisoprolol was t itrated up to 10 mg p.o. twice daily and I added amlodipine which is now up to 10 mg p.o. daily. His previous hydralazine at 50 mg p.o. three times daily and losartan 25 mg once a day were continued as they were prior to admission. He remains suboptimally controlled although is now asymptomatic and I think can be discharged to outpatient followup. We did arrange primary care followup in 4 days post discharge. He also follows as an outpatient with [facility]. DISCHARGE MEDICATIONS: Please see computer record for full detailed list. NEW MEDICATIONS: 1. Norvasc 10 mg p.o. daily. 2. Bisoprolol increased to 10 mg p.o. twice daily. 3. Lipitor started at 20 mg p.o. daily. ADDITIONAL DISCHARGE INSTRUCTIONS: 1. Bring your home blood pressure cuff to his first appointment to Primary Care to assess for accura cy. 2. Follow up with Dr. Carlos Enrique Ortiz scheduled August 28 at 8:30 a.m. Greater than 30 minutes' time was spent arranging this discharge. Patient was seen and examined by mirta rodriguez on day of discharge. /[id number]/MODL
[2017-08-24] MEDS ORDERED: ATORVASTATIN CALCIUM 20 MG TAB PO SCH (09:00)
== END 2017-08-23 14:10 | disposition home or self-care (01) | DRG 305 ==
LOC: F2W 17:55
PROVIDERS: ADMIT Family Medicine; ATTEND Internal Medicine
DX: I16.0 Hypertensive urgency (principal); I13.0 Hypertensive heart and chronic kidney disease with heart failure and stage 1 through stage 4 chronic kidney disease, or unspecified chronic kidney disease; N18.9 Chronic kidney disease, unspecified; I25.10 Atherosclerotic heart disease of native coronary artery without angina pectoris; I50.9 Heart failure, unspecified; M10.9 Gout, unspecified; I70.1 Atherosclerosis of renal artery; Z95.5 Presence of coronary angioplasty implant and graft; Z87.891 Personal history of nicotine dependence
CPT/HCPCS: 96374; J0360; J1644

== ENCOUNTER 2017-08-24 14:19 | Emergency (ER) | payer SELFPAY ==
[2017-08-24 15:34] VITALS: BP 132/67; PULSE 97; RESP 18; TEMP 98.4; O2SAT 94
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
[2017-08-24] MEDS ORDERED: BACITRACIN OINTMENT 1 PACKET TP ONE (15:49)
== END 2017-08-24 15:59 | disposition home or self-care (01) ==
PROC: 0KQ03ZZ Repair Head Muscle, Percutaneous Approach (ICD-10-PCS; principal; 2017-08-24)
DX: S09.90XA Unspecified injury of head, initial encounter (principal); S01.81XA Laceration without foreign body of other part of head, initial encounter; I11.0 Hypertensive heart disease with heart failure; I50.9 Heart failure, unspecified; Z95.5 Presence of coronary angioplasty implant and graft; Z87.891 Personal history of nicotine dependence; Z79.82 Long term (current) use of aspirin; Y04.0XXA Assault by unarmed brawl or fight, initial encounter; Y99.8 Other external cause status; Y93.89 Activity, other specified

== ENCOUNTER 2018-01-31 07:58 | Observation (INO) | payer MEDICAID, OTHER ==
--- NOTE | 2018-01-31 08:23 | EDPHY ---
H & P Stated Complaint: left wrist swelling/pain this morning, no trauma Time Seen by Provider: 01/31/18 08:20 HPI/ROS: Chief Complaint: Wrist pain HPI: 57-year-old male woke this morning with pain and swelling in his left wrist. He does not recall any traumas or falls but thinks he may have injured it. He does have a history of similar episodes in the past and was diagnosed with gout. He has taking got medications before but is not currently on any. Denies any fevers or chills. Has had some moderate swelling. No redness. ROS: 10 systems were reviewed and were negative except those elements noted in the HPI. PMH: Gout Social History: No smoking, no alcohol, no recreational drug use Family History: non-contributory Physical Exam: General: Awake, alert, no acute distress Left wrist: Moderate swelling. He has some tenderness over the joint line. No bony tenderness or deformity. Is not warm to touch. Is not erythematous. He is neurologically intact in the radial, median, and ulnar nerve distribution. He has 2+ radial ulnar pulses. Capillary refills less than 3 sec. - Personal History Tetanus Vaccine Date: < 10 years - Medical/Surgical History Hx Asthma: No Hx Chronic Respiratory Disease: No Hx Diabetes: No Hx Cardiac Disease: Yes Hx Renal Disease: No Hx Cirrhosis: No Hx Alcoholism: No Hx HIV/AIDS: No Hx Splenectomy or Spleen Trauma: No Other PMH: CHF. HTN. heart cath, 1 stents placed 2012,mumps measels, chicken pox, - Social History Smoking Status: Former smoker Constitutional: Initial Vital Signs Temperature (C) 36.7 C 01/31/18 08:01 Heart Rate 69 01/31/18 08:01 Respiratory Rate 18 01/31/18 08:01 Blood Pressure 243/142 H 01/31/18 08:01 O2 Sat (%) 95 01/31/18 08:01 O2 Delivery Mode Room Air Allergies/Adverse Reactions: No Known Allergies Allergy (Verified 01/31/18 08:00) Home Medications: Medication Instructions Recorded Aspirin EC [Aspirin EC 81 mg (*)] 81 mg PO DAILY 08/20/17 Losartan Potassium [Cozaar 25 mg 25 mg PO DAILY 08/20/17 (*)] hydrALAZINE [Apresoline 50 mg (*)] 50 mg PO TID 08/20/17 Bisoprolol Fumarate [Zebeta (*)] 10 mg PO BID #120 tab 08/23/17 Colchicine [Colchicine (*)] 0.6 mg PO BID PRN 01/31/18 Medical Decision Making - Diagnostics EKG Interpretation: ECG time 1300, sinus rhythm rate 68, LVH with anterior ST elevation consistent with LVH. Unchanged compared to his ECG from 22 of August Imaging Results: Imaging Impressions Wrist X-Ray 01/31/18 08:14 Impression: No acute fracture or evidence of scapholunate ligament tear. ED Course/Re-evaluation: Patient's blood pressure noted. He does have a history of hypertensive urgency. Did not take his blood pressure medications today. He is not compliant with his usual regimen and frequently does not take hydralazine because it makes him feel fuzzy. He has not followed up with primary care physician. Will given his morning meds here recheck his blood pressure. X-rays negative. Symptoms consistent with his gout. This is atraumatic. Will discharge him on colchicine and indomethacin and have a follow up with primary care physician. Patient's blood pressure is 250/143 after hydralazine and losartan. I have discussed with Dr. Thomas. Will admit to PCU for further care. - Data Points Laboratory Results: Laboratory Results 01/31/18 12:35 01/31/18 01/31/18 12:35 12:35 WBC 15.84 10^3/uL H 10^3/uL (3.80-9.50) RBC 5.65 10^6/uL 10^6/uL (4.40-6.38) Hgb 16.6 g/dL g/dL (13.7-17.5) Hct 48.4 % % (40.0-51.0) MCV 85.7 fL fL (81.5-99.8) MCH 29.4 pg pg (27.9-34.1) MCHC 34.3 g/dL g/dL (32.4-36.7) RDW 12.8 % % (11.5-15.2) Plt Count 279 10^3/uL 10^3/uL (150-400) MPV 8.9 fL fL (8.7-11.7) Neut % (Auto) 82.5 % H % (39.3-74.2) Lymph % (Auto) 8.6 % L % (15.0-45.0) [place] % (Auto) 7.8 % % (4.5-13.0) Eos % (Auto) 0.5 % L % (0.6-7.6) Baso % (Auto) 0.3 % % (0.3-1.7) Nucleat RBC Rel Count 0.0 % % (0.0-0.2) Absolute Neuts (auto) 13.08 10^3/uL H 10^3/uL (1.70-6.50) Absolute Lymphs (auto) 1.37 10^3/uL 10^3/uL (1.00-3.00) Absolute Monos (auto) 1.23 10^3/uL H 10^3/uL (0.30-0.80) Absolute Eos (auto) 0.08 10^3/uL 10^3/uL (0.03-0.40) Absolute Basos (auto) 0.04 10^3/uL 10^3/uL (0.02-0.10) Absolute Nucleated RBC 0.00 10^3/uL 10^3/uL (0-0.01) Immature Gran % 0.3 % % (0.0-1.1) Immature Gran # 0.04 10^3/uL 10^3/uL (0.00-0.10) Sodium Pending Potassium Pending Chloride Pending Carbon Dioxide Pending Anion Gap Pending BUN Pending Creatinine Pending Estimated GFR Pending Glucose Pending Calcium Pending Medications Given: Discontinued Medications Hydralazine HCl (Apresoline) 25 mg PO EDNOW ONE Stop: 01/31/18 09:07 Last Admin: 01/31/18 09:40 Dose: 25 mg Losartan Potassium (Cozaar) 25 mg PO EDNOW ONE Stop: 01/31/18 09:07 Last Admin: 01/31/18 09:40 Dose: 25 mg Departure - Departure Disposition: [facility] Inpatient Acute Clinical Impression: Gout, Hypertensive urgency Condition: Good Additional Instructions: Please take your blood pressure medications as prescribed. You may take the colchicine and prednisone for your gout flare. Please follow up with primary care physician and your [place] [employer] professor in next 3-4 days for blood pressure recheck and possible adjustments to her medications. Return to the emergency depart for increasing pain, redness, fevers, headache, chest pain, or any other concerns.
[2018-01-31] MEDS ORDERED: hydrALAZINE 25 MG TAB PO ONE (09:06)
[2018-01-31] MEDS ORDERED: LOSARTAN POTASSIUM 25 MG TAB PO ONE (09:06)
[2018-01-31 12:49] LABS: PLATELET COUNT 279 10^3/uL (150-400)
[2018-01-31] MEDS ORDERED: ACETAMINOPHEN 325 MG TAB PO PRN (13:19)
[2018-01-31] MEDS ORDERED: ONDANSETRON 4 MG/2 ML VIAL IVP PRN (13:19)
[2018-01-31] MEDS ORDERED: ONDANSETRON DISINTEGRATING 4 MG TAB PO PRN (13:19)
[2018-01-31] MEDS ORDERED: oxyCODONE IR 5 MG TAB PO PRN (13:19)
--- NOTE | 2018-01-31 13:28 | ASMTLACE ---
WES Acuity / Level of Answers: No Care: Did the patient have an inpatient admission? Comorbidities - select Answers: Congestive heart failure all that apply Coronary Artery Disease Moderate or severe liver or renal disease Other Notes: HTN, LVH, gout # of Emergency department Answers: 3-4 visits in the last 6 months Social determinants Answers: Lack of community resources and/or lack of social support (no pcp, lives alone, transportation, abhilash d) Score: 16 Date Signed: 01/31/2018 01:27 PM Electronically Signed By:Vonnie Aguila RN
--- NOTE | 2018-01-31 13:48 | ASMTCMCOM ---
CM Note CM Note Notes: Pt presented to the ED for left wrist swelling and pain without known injury/trauma. Symptoms consistent w/gout. Pt was going to be discharged [facility] w/colchicine and indomethacin but pt's blood pressure remained very high. Pt has a history of hypertensive urgency and stated he hadn't taken his medications today. Pt was provided his HTN medications in the ED and observed for a couple of hours but his BP never stabilized. Pt admitted for hypertensive urgency. Pt has a history of HTN, CAD s/p stent, CHF, LVH, CKD, renal artery stenosis, gout. Spoke w/pt extensively re:pt's recent admission in July 2017 and that he had not followed up with primary care (pt had been provided an appt on 08/28/17 w/Dr Ortiz at [facility] but states he didn't make it to the appt "because I couldn't afford it"). Pt was laid off from his job in July and says he didn't get Medicaid until after the scheduled appt. Pt states he also never followed up w/a charge master specialist. Pt is followed outpatient by [facility] for CKD and states he was getting his medication refills through Dr Martinez w/[facility]. Pt states his medications were causing him to feel "dizzy, lightheaded, foggy" and so he decreased his Hydralazine from 50mg TID to 25mg TID and stopped taking the Norvasc altogether. Pt is at high risk for readmission due to his history of medication non-adherence and not following up as recommended. Pt will need assistance w/either getting another appt w/Dr Ortiz (if he is still accepting Medicaid pts) or w/another [facility] provider who is accepting Medicaid pts, or w/[facility]. The DC plan from last admission included pt bringing his home BP machine to the PCP appt to ensure its readings are accurate. Pt states when he takes his BP at home it is consistently 140s/90s. Pt states he lives alone w/three dogs. Per chart review, pt had been at the time he was admitted back in 2012 for his left heart cath but pt states he considers himself single right now "or until the other person makes a decision;" pt states his former spouse will be taking care of his dogs while he is admitted. Of note, pt was followed by [facility] back in 2012 and pt was supposed to continue followup outpt w/Dr East. Overall, pt has a long history dating back to 2012 of very similar presentation and issues w/follow-up and adherence. Pt adamantly states he will not take Lisinopril or some of the other HTN meds. Exact DC needs unknown/TBD. This CM will send referral to [facility] RN. CM to follow. Date Signed: 01/31/2018 01:47 PM Electronically Signed By:Vonnie Aguila RN
[2018-01-31] MEDS: predniSONE 20 MG TAB PO SCH (14:35)
[2018-01-31] MEDS: BISOPROLOL FUMARATE 5 MG TAB PO SCH ×2 (14:35→19:59)
[2018-01-31] MEDS: COLCHICINE 0.6 MG CAP/TAB PO SCH ×2 (14:35→20:00)
--- NOTE | 2018-01-31 15:06 | PDGENHP ---
History and Physical - Chief Complaint Acute wrist pain - History of Present Illness Primary care provider: None HPI: 57-year-old male presents with acute pain characterized as aching located in his left wrist with onset of symptoms approximately 2:00 a.m. On the day of presentation and duration persistent thereafter. The patient reports that the pain is very similar in character to previous gout flares, as is the location. His gout flare has been alleviated by prednisone in the past. He reports that he has not taken any pain medications for his wrist pain this morning. He reports that he has taken some of his previously prescribed antihypertensives this morning, but he has significantly modified the dosages since his discharge in in July of 2017. He reports that he has been experiencing some associated expressive aphasia and cognitive slowing, what he describes as "fogginess", which he noticed after he had initiated the full dosages of the antihypertensives prescribed in July. These included amlodipine 10 mg daily, bisoprolol 10 mg twice daily, hydralazine 50 mg 3 times daily, losartan 25 mg once daily. After he had been on all of these medications, he began experiencing the aforementioned cognitive symptoms, and he attributed the symptoms to the medications, rather than associating them with stabilization and improvement in his blood pressure. Consequently, he stopped his amlodipine as he believes that this was the most notable fender, and he reduced his bisoprolol down to 5 mg twice daily. He also cut his hydralazine in half, and then cut it in half again, and then took it only twice a day as opposed to 3 times a day. After making these medication adjustments, he is presenting today with a systolic blood pressure of 250. He has also not followed up with a primary care provider since his last discharge, although it was recommended that he follow up with PCP, Dr. Ortiz. He reports that the reason for this is financial hardship as he has been laid off from his job. History Information - Allergies/Home Medication List Allergies/Adverse Reactions: No Known Allergies Allergy (Verified 01/31/18 08:00) Home Medications: Aspirin EC [Aspirin EC 81 mg (*)] 81 mg PO DAILY 08/20/17 [Last Taken 01/30/18] Losartan Potassium [Cozaar 25 mg (*)] 25 mg PO DAILY 08/20/17 [Last Taken ] hydrALAZINE [Apresoline 50 mg (*)] 50 mg PO TID 08/20/17 [Last Taken 01/30/18] Colchicine [Colchicine (*)] 0.6 mg PO BID PRN 01/31/18 [Last Taken Unknown] I have personally reviewed and updated: family history, medical history, social history, surgical history - Past Medical History hypertension (Refractory, secondary to renal artery stenosis with stenting in the left renal artery) Additional medical history: Chronic kidney disease stage 3 with baseline creatinine 1.6-1.9. Coronary artery disease with cardiac stent placement. Gout with prednisone and colchicine used in past. Chronic diastolic congestive heart failure - Surgical History Reports: coronary stent Additional surgical history: Renal artery stent - Family History Additional family history: No family history of end-stage renal disease, the patient has 1st degree relatives with diabetes and hypertension - Social History Smoking Status: Former smoker Alcohol Use: None Drug Use: None Additional social history: Independent in his ADLs, currently out of work Review of Systems Review of Systems: Muscolosketal: Reports: other (Left wrist pain) Neurological: Reports: other (Expressive aphasia) Physical Exam Physical Exam: Temp Pulse Resp BP Pulse Ox 36.9 C 80 16 264/148 H 94 01/31/18 14:15 01/31/18 14:35 01/31/18 14:15 01/31/18 14:35 01/31/18 14:15 Constitutional: no apparent distress, appears nourished, chronically ill appearing, uncomfortable Eyes: PERRL, anicteric sclera, EOMI Ears, Nose, Mouth, Throat: moist mucous membranes, hearing normal, ears appear normal, no oral mucosal ulcers Cardiovascular: regular rate and rhythym, systolic murmur (1/6 systolic murmur at the sternum), No irregularly irregular, No carotid bruit, No edema Respiratory: no respiratory distress, no rales or rhonchi, clear to auscultation Gastrointestinal: normoactive bowel sounds, soft, non-tender abdomen, no palpable masses, No distension Skin: No abrasion, No rash Musculoskeletal: other (Mild left wrist fusion, painful flexion and extension of left wrist, mild tenderness to palpation along the dorsal surface, full range of motion left elbow, 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) Neurologic: AAOx3, sensation intact bilaterally, No weakness (Motor strength 5/ 5 bilateral upper and lower extremities), No facial droop Psychiatric: not anxious, flat affect, poor insight, other (Tangential, redirectable, slightly delayed speech pattern, verbose), No agitated Lab Data & Imaging Review 01/31/18 12:35 01/31/18 12:35 WBC 15.84 10^3/uL (3.80-9.50) H 01/31/18 12:35 RBC 5.65 10^6/uL (4.40-6.38) 01/31/18 12:35 Hgb 16.6 g/dL (13.7-17.5) 01/31/18 12:35 Hct 48.4 % (40.0-51.0) 01/31/18 12:35 MCV 85.7 fL (81.5-99.8) 01/31/18 12:35 MCH 29.4 pg (27.9-34.1) 01/31/18 12:35 MCHC 34.3 g/dL (32.4-36.7) 01/31/18 12:35 RDW 12.8 % (11.5-15.2) 01/31/18 12:35 Plt Count 279 10^3/uL (150-400) 01/31/18 12:35 MPV 8.9 fL (8.7-11.7) 01/31/18 12:35 Neut % (Auto) 82.5 % (39.3-74.2) H 01/31/18 12:35 Lymph % (Auto) 8.6 % (15.0-45.0) L 01/31/18 12:35 [place] % (Auto) 7.8 % (4.5-13.0) 01/31/18 12:35 Eos % (Auto) 0.5 % (0.6-7.6) L 01/31/18 12:35 Baso % (Auto) 0.3 % (0.3-1.7) 01/31/18 12:35 Nucleat RBC Rel Count 0.0 % (0.0-0.2) 01/31/18 12:35 Absolute Neuts (auto) 13.08 10^3/uL (1.70-6.50) H 01/31/18 12:35 Absolute Lymphs (auto) 1.37 10^3/uL (1.00-3.00) 01/31/18 12:35 Absolute Monos (auto) 1.23 10^3/uL (0.30-0.80) H 01/31/18 12:35 Absolute Eos (auto) 0.08 10^3/uL (0.03-0.40) 01/31/18 12:35 Absolute Basos (auto) 0.04 10^3/uL (0.02-0.10) 01/31/18 12:35 Absolute Nucleated RBC 0.00 10^3/uL (0-0.01) 01/31/18 12:35 Immature Gran % 0.3 % (0.0-1.1) 01/31/18 12:35 Immature Gran # 0.04 10^3/uL (0.00-0.10) 01/31/18 12:35 Sodium 143 mEq/L (135-145) 01/31/18 12:35 Potassium 4.2 mEq/L (3.3-5.0) 01/31/18 12:35 Chloride 108 mEq/L (97-110) 01/31/18 12:35 Carbon Dioxide 23 mEq/l (22-31) 01/31/18 12:35 Anion Gap 12 mEq/L (8-16) 01/31/18 12:35 BUN 21 mg/dL (7-23) 01/31/18 12:35 Creatinine 1.6 mg/dL (0.7-1.3) H 01/31/18 12:35 Estimated GFR 45 01/31/18 12:35 Glucose 98 mg/dL (70-100) 01/31/18 12:35 Calcium 9.9 mg/dL (8.5-10.4) 01/31/18 12:35 Troponin I < 0.012 ng/mL (0.000-0.034) 01/31/18 12:35 Visualized and Interpreted imaging results: Yes Interpretation: Wrist x-ray without any fracture Visualized and Interpreted EKG results: Yes EKG Interpretation: Positive for: LVH, normal sinsus rhythm Assessment & Plan Assessment: 57-year-old male presents with acute on chronic gout flare complicated by acute hypertensive urgency Plan: 1. Gout flare. Acute on chronic, evidenced by left wrist effusion, tenderness, painful range of motion, history of gout in this location in the past, predisposed with chronic kidney disease and suboptimal outpatient management -discussed with patient, has responded to prednisone in past, will initiate 20 mg once daily and gauge effect -continue colchicine 0.6 twice daily -will recommend allopurinol as outpatient maintenance therapy -oxycodone as breakthrough pain relief as needed -avoid NSAIDs given hypertension and chronic kidney disease 2. Chronic kidney disease stage 3. Likely secondary to uncontrolled hypertension and also possibly impacted by his history of renal artery stenosis -currently at baseline, monitor 3. Hypertensive crisis. Patient has hypertensive urgency with a systolic blood pressure between 240 and 270, secondary to inadequately controlled blood pressure in the outpatient setting with medical non adherence -reviewed outside records, 08/23/[address] Dea Moscoso, reports that patient was referred to an outpatient primary care provider, discharged on the aforementioned dosages of amlodipine, bisoprolol, hydralazine , losartan -the patient reports that he has not seen this primary care provider in the outpatient setting and has not seen any medical provider for guidance on blood pressure management in the interim -patient is resistant to read initiating these medications at their previous dosages because he attributes his cognitive impairment symptoms to this specific medications, while what I suspect is actually occurring is the patient' s blood pressure is moving into a more sustainable ranged and his body will require time to adapt since it has been so significantly elevated for so long -increased bisoprolol back up to 10 mg twice daily, increase hydralazine back up to 50 mg 3 times daily, continue losartan at 25 mg daily, gauge effect -given that the patient chronically runs at such a high systolic blood pressure , it would be unsafe to rapidly lower his blood pressure with IV antihypertensives, putting him at risk for end-organ hypoperfusion, cardiovascularly, cerebrovascular, renal vascularly, and at the present time he does not have evidence of acute end-organ failure so there is no indication to run this risk -after we evaluate the impact of bringing these medications back up to the recommended dosages, then we will continue to program counselor him to have outpatient follow-up, as the patient requires significant amount of support in order to continue his medications as prescribed 4. Chronic diastolic congestive heart failure. No evidence of acute exacerbation, continue monitor Diet. Cardiac Prophylaxis. High risk, hold pharm given substantially elevated blood pressure , SCDs Code. Full Disposition. Anticipated discharge is 02/01, pending stabilization of conditions outlined above. Discussed with Flory Newberry, hospitalist provider, she has signed out this patient to me for evaluation.
[2018-02-01] MEDS ORDERED: hydrALAZINE 20 MG/ML VIAL IVP ONE (04:27)
[2018-02-01 07:53] LABS: PLATELET COUNT 271 10^3/uL (150-400)
[2018-02-01] MEDS ORDERED: LOSARTAN POTASSIUM 25 MG TAB PO SCH (09:00)
[2018-02-01] MEDS: BISOPROLOL FUMARATE 5 MG TAB PO SCH (09:15)
[2018-02-01] MEDS: COLCHICINE 0.6 MG CAP/TAB PO SCH (09:15)
[2018-02-01] MEDS: predniSONE 20 MG TAB PO SCH (09:18)
--- NOTE | 2018-02-01 16:34 | PDDCSUM ---
Discharge Summary Discharge Summary: DISCHARGE SUMMARY FOLLOW-UP ITEMS: 1. Close outpatient blood pressure monitoring through [facility] 2. Refer to [facility] DATE OF ADMISSION: 01/31/2018 DATE OF DISCHARGE: 02/01/2018 DISCHARGE DIAGNOSES: 1. Acute on chronic gout flare 2. Chronic kidney disease stage 3 3. Hypertensive urgency 4. Chronic diastolic congestive heart failure CONSULTATIONS: None PROCEDURES / IMAGING: Wrist x-ray demonstrating no fracture, EKG demonstrating LVH CHIEF COMPLAINT: Acute left wrist pain SUBJECTIVE: Less wrist pain at time of discharge, improved range of motion, patient very noncommittal about his engagement with outpatient services for hypertension and anxiety PHYSICAL EXAM ON DISCHARGE: Systolic blood pressure 184-238, heart rate 70-80, afebrile overnight, satting well on room air, alert awake oriented x3, speech is somewhat more fluent than yesterday, slightly less follow-up blocking, improved range of motion left wrist with persistent dorsal effusion, less tenderness to palpation, lest pain with extension and flexion LABS ON DISCHARGE: Creatinine 1.3, serum sodium 140 HOSPITAL COURSE BY PROBLEM: The patient presented for evaluation of left wrist pain secondary to acute on chronic gout flare. This was evidenced by wrist effusion, tenderness, painful range of motion, history of gout in this location in the past with a predisposition from his chronic kidney disease and suboptimal outpatient management. The patient reports that he has been attempting to manage it with colchicine at home, and has failed. Consequently he was administered prednisone 20 mg as well as his ongoing colchicine, and his flare stabilized. His range of motion had improved and he will be able to manage this at home with a short course of steroids, trial 5 day burst as well as ongoing colchicine. I provided him with an initiation dose of allopurinol 100 mg given his chronic kidney disease and need for outpatient gout maintenance therapy. Since he has no outpatient providers, I decided to initiate this medication now as opposed to relying on him to follow up with a provider and then consider initiation at a later juncture. The patient's primary issue is his hypertensive urgency, as evidenced by systolic blood pressures greater than 220, secondary to medical non adherence. He has been seen at our facility before for blood pressure management issues, and the most recent episode of care was in July of 2017. At that time, the patient was discharged on 4 agents, notably losartan, bisoprolol, hydralazine, amlodipine, and prior to his discharge his blood pressure had responded. However, the patient noticed symptoms of relative cerebral hypoperfusion with improvement in his blood pressure, notably cognitive slowing, generalized fatigue, and feeling like he was in a fog. The patient reports that he can't live like that and that it impairs his ability to find meaningful work and live a meaningful life. Consequently, he discontinued his amlodipine, reduced his doses of bisoprolol and hydralazine. Both the patient's nurse and I counseled him on the high risk of [place] and CVA from persistent elevations in his blood pressure, and we encouraged the patient to adhere to the dosages of his antihypertensives as prescribed during this episode of care, namely hydralazine 50 mg 3 times daily, losartan 25 mg daily, bisoprolol 10 mg twice daily. We did see improvement in his blood pressure with the initiation of these doses of the medications, with systolic blood pressures decline from 270 down to 180. I would not want to push his blood pressure lower than that at this time, as I suspect that his blood pressure has been consistently running greater than 220, as he is unusually asymptomatic with this pressure. Lowering his blood pressure too well too rapidly will place him at risk for relative hypoperfusion CVA, mi, and additional symptoms which will reduce his likelihood of medical adherence. I did family counselor the patient regarding initiation of a 4th agent, and he is noncommittal to this at this time, as he reports that he does not have any firm desire to follow up with an outpatient medical provider and I would not want to reduce his blood pressure further with another agent without the assurance of outpatient follow-up. We did discuss the mental health impact of chronic illness, and the result of stress and anxiety on his overall well-being. The patient is noncommittal about seeking outpatient mental health services, but I did advise him to do so. These may be most accessible for the patient through mental health providers, as he is currently out of work and he can hopefully access [facility] if he does choose to establish a relationship with [facility]. DISCHARGE MEDICATIONS: Please see official discharge medication reconciliation sheet in chart , hydralazine 50 mg 3 times daily, losartan 25 mg once daily, bisoprolol 10 mg twice daily, allopurinol 100 mg daily, colchicine 0.6 mg twice daily, prednisone 20 mg daily x3 days, recommended discontinuing aspirin given his risk of intracranial hemorrhage with these blood pressures. DISCHARGE INSTRUCTIONS: Please establish outpatient care at [facility].
[2018-02-01 17:26] VITALS: BP 229/132
--- NOTE | 2018-02-02 01:44 | CPEKG ---
Test Reason : OPEN Blood Pressure : / mmHG Vent. Rate : 068 BPM Atrial Rate : 068 BPM P-R Int : 166 ms QRS Dur : 092 ms QT Int : 412 ms P-R-T Axes : 021 -04 139 degrees QTc Int : 439 ms Sinus rhythm LVH with secondary repolarization abnormality Anterior ST elevation, probably due to LVH Confirmed by Omkar Casanova ([id number]) on 02/02/2018 1:43:59 AM Referred By: Confirmed By:Omkar Casanova
== END 2018-02-01 19:54 | disposition home or self-care (01) ==
LOC: INTOOBSV 13:02 → F2W 14:10
PROVIDERS: ADMIT Internal Medicine; ATTEND Internal Medicine
DX: I16.0 Hypertensive urgency (principal); M10.032 Idiopathic gout, left wrist; M1A.9XX0 Chronic gout, unspecified, without tophus (tophi); Z91.128 Patient's intentional underdosing of medication regimen for other reason; N18.3 Chronic kidney disease, stage 3 (moderate); I50.32 Chronic diastolic (congestive) heart failure; I25.10 Atherosclerotic heart disease of native coronary artery without angina pectoris; Z95.5 Presence of coronary angioplasty implant and graft; Z96.0 Presence of urogenital implants; Z59.9 Problem related to housing and economic circumstances, unspecified
CPT/HCPCS: 73110; 93005; 96374; 99285; G0378; J0360; J7512